=== PATIENT | female | born 1975 | race Caucasian/White ===

== ENCOUNTER → 2017-02-04 | Outpatient (CLI) | payer BC | END | disposition home or self-care (01) | LOC: LABWHC1 09:40 | PROVIDERS: ATTEND Physician Assistant | DX: E50.9 Vitamin A deficiency, unspecified (principal) | CPT/HCPCS: 36415; 84590 ==

== ENCOUNTER 2018-03-18 00:40 | Emergency (ER) | payer BC ==
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
[2018-03-18 01:33] LABS: Amphetamine Screen,Urine Not Detected (NotDetected); Barbiturate Screen,Urine Not Detected (NotDetected); Benzodiazepines Screen,Urine Not Detected (NotDetected); Cocaine Screen,Urine Not Detected (NotDetected); Methadone Screen, Urine Not Detected (NotDetected); Opiate Screen,Urine Not Detected (NotDetected); Oxycodone Screen, Urine Not Detected (NotDetected); Phencyclidine Screen,Urine Not Detected (NotDetected); Tricyclic Antidepressant,Urine Not Detected (NotDetected); Urn Cannabinoid Scrn Not Detected (NotDetected)
[2018-03-18 10:02] VITALS: BP 126/77; PULSE 70; RESP 16; TEMP 97.5
== END 2018-03-18 10:02 | disposition home or self-care (01) ==
LOC: EC 00:40
DX: F31.9 Bipolar disorder, unspecified (principal); F10.129 Alcohol abuse with intoxication, unspecified; J45.909 Unspecified asthma, uncomplicated; Z87.891 Personal history of nicotine dependence; Z79.899 Other long term (current) drug therapy; Z88.6 Allergy status to analgesic agent
CPT/HCPCS: 80306; 82075; 99284

== ENCOUNTER 2021-11-16 21:11 | Observation (INO) | payer BC ==
--- NOTE | 2021-11-16 22:04 | ED ---
Chest Pain HPI - General Chief Complaint: Chest Pain Stated Complaint: Chest Pain Time Seen by Provider: 11/16/21 21:30 Source: patient, RN notes reviewed, old records reviewed Mode of arrival: wheelchair Limitations: no limitations - History of Present Illness Initial Comments: This is a 46-year-old female presents today for evaluation of abdominal pain. Patient has epigastric burning sharp pain. Feels it prior episodes of reflux but worse. Symptoms for about a day no help at times. Patient has no fevers no vomiting. Symptoms are improved if she leans forward worse when she lays down flat. Patient does have history of bariatric surgery. A she currently describes the pain worse chest pain going on for the last 8 hours. MD Complaint: chest pain, other (Epigastric abdominal pain) -: hour(s) (8) Onset: during rest Pain Location: substernal Pain Radiation: none Severity: moderate Severity scale (1-10): 7 Quality: sharp, other (Burning) Consistency: constant Improves With: nothing Worsens With: nothing Context: recent surgery (Surgeries are not recent) Anginal Symptoms: nausea Other Symptoms: acid taste in mouth Treatments Prior to Arrival: none - Related Data Home Medications Medication Instructions Recorded Confirmed FLUoxetine HCL [PROzac] 60 mg PO DAILY 03/18/18 11/16/21 Cholecalciferol (Vitamin D3) 125 mcg PO DAILY 11/16/21 11/16/21 [Vitamin D3 (125 MCG = 5,000 IU)] Montelukast Sodium [Singulair] 10 mg PO HS 11/16/21 11/16/21 [place]-3 Fatty Acids/Fish Oil [Fish 1 cap PO DAILY 11/16/21 11/16/21 Oil 1,000 mg Softgel] lisinopriL [Zestril] 5 mg PO DAILY 11/16/21 11/16/21 metFORMIN HCL [Glucophage] 1,000 mg PO BID 11/16/21 11/16/21 Allergies Allergy/AdvReac Type Severity Reaction Status Date / Time tramadol HCl [From Ultra] Allergy Unknown Verified 11/16/21 22:22 Review of Systems ROS Statement: Those systems with pertinent positive or pertinent negative responses have been documented in the HPI. ROS Other: All systems not noted in ROS Statement are negative. EKG Findings - EKG Comments: EKG Findings:: EKG shows sinus rhythm 61 FL 217 QRS 97 QTC 436 Past Medical History Past Medical History: Asthma Additional Past Medical History / Comment(s): migraines History of Any Multi-Drug Resistant Organisms: None Reported Past Surgical History: Appendectomy, Bariatric Surgery, Section, Orthopedic Surgery Additional Past Surgical History / Comment(s): splenectomy Past Psychological History: Bipolar, Depression Smoking Status: Current every day smoker Past Alcohol Use History: Occasional Past Drug Use History: Marijuana General Exam Limitations: no limitations General appearance: alert, in no apparent distress Head exam: Present: atraumatic, normocephalic, normal inspection Eye exam: Present: normal appearance, PERRL, EOMI. Absent: scleral icterus, conjunctival injection, periorbital swelling ENT exam: Present: normal exam, mucous membranes moist Neck exam: Present: normal inspection. Absent: tenderness, meningismus, lymphadenopathy Respiratory exam: Present: normal lung sounds bilaterally. Absent: respiratory distress, wheezes, rales, rhonchi, stridor Cardiovascular Exam: Present: regular rate, normal rhythm, normal heart sounds. Absent: systolic murmur, diastolic murmur, rubs, gallop, clicks GI/Abdominal exam: Present: soft, tenderness (Epigastric), normal bowel sounds. Absent: distended, guarding, rebound, rigid Extremities exam: Present: normal inspection, full ROM, normal capillary refill. Absent: tenderness, pedal edema, joint swelling, calf tenderness Back exam: Present: normal inspection Neurological exam: Present: alert, oriented X3, CN II-XII intact Psychiatric exam: Present: normal affect, normal mood Skin exam: Present: warm, dry, intact, normal color. Absent: rash Course Vital Signs 11/16/21 21:18 Temperature 97.0 F L Pulse Rate 77 Respiratory 20 Rate Blood Pressure 136/86 O2 Sat by Pulse 98 Oximetry - Reevaluation(s) Reevaluation #1: 11/16/21 23:15 Medical record is reviewed Reevaluation #2: 11/16/21 23:15 Patient's pain is improved Reevaluation #3: 11/16/21 23:46 Patient informed results and questions are answered Reevaluation #4: 11/16/21 23:46 Patient requiring multiple doses of pain medication - Consultations Consultation #1: spoke w Dr Keller who agrees to admit the patient for surgical evaluation Chest Pain MDM - MDM 46 female to the emergency department for evaluation patient presents today for evaluation of abdominal pain. Epigastric abdominal pain right upper quadrant burning. Patient does have positive colicystitis lament for surgical evaluation and treatment Disposition Clinical Impression: Abdominal pain, Acute cholecystitis Disposition: ADMITTED IP TO THIS HOSP Condition: Good Is patient prescribed a controlled substance at d/c from ED?: No Referrals: Maxx Thacker MD [Primary Care Provider] - 1-2 days
[2021-11-16] MEDS ORDERED: PANTOPRAZOLE 40 MG/10 ML VIAL IVP STA (22:14)
[2021-11-16] MEDS ORDERED: MORPHINE SULFATE 4 MG/ML SYRINGE IVP STA (22:14)
[2021-11-16] MEDS ORDERED: ONDANSETRON 4 MG/2 ML VIAL IVP STA (22:14)
[2021-11-16 22:33] LABS: Basophils # (A) 0.1 k/uL (0-0.2); Basophils % (A) 0 %; Eosinophils # (A) 0.2 k/uL (0-0.7); Eosinophils % (A) 1 %; HCT 44.2 % (34.0-46.0); HGB 14.1 gm/dL (11.4-16.0); Lymphocytes # (A) 1.5 k/uL (1.0-4.8); Lymphocytes % (A) 8 %; MCH 27.6 pg (25.0-35.0); MCV 86.2 fL (80.0-100.0); Mean Platelet Volume 7.6; Monocytes # (A) 0.9 k/uL (0-1.0); Monocytes % (A) 5 %; Neutrophils # (A) 14.8 k/uL (1.3-7.7); Neutrophils % (A) 85 %; Platelet Count 364 k/uL (150-450); RBC 5.13 m/uL (3.80-5.40); RDW 12.8 % (11.5-15.5); WBC 17.6 k/uL (3.8-10.6)
[2021-11-16 22:35] LABS: Appearance,Urine Clear (Clear); Bilirubin,Urine Negative (Negative); Blood,Urine Negative (Negative); Color,Urine Yellow; Glucose,Urine (UA) Negative (Negative); Ketones,Urine Negative (Negative); Leukocyte Esterase,Urine Negative (Negative); Nitrite,Urine Negative (Negative); Protein,Urine Trace (Negative); Specific Gravity,Urine 1.027 (1.001-1.035)
--- NOTE | 2021-11-16 22:39 | XR ---
EXAMINATION TYPE: XR chest 2V DATE OF EXAM: 11/16/2021 COMPARISON: 04/21/2015 HISTORY: Short of breath. Chest pain TECHNIQUE: FINDINGS: Heart and mediastinum are normal. Lungs are clear. Diaphragm is normal. There is small hiatal hernia. Bony thorax is intact. IMPRESSION: No active cardiopulmonary disease.
[2021-11-16 22:42] LABS: ALT 72 U/L (4-34); AST 187 U/L (14-36); African American GFR (CKD) >90 (>60 ml/min/1.73 sqM); Albumin 4.6 g/dL (3.5-5.0); Alkaline Phosphatase 89 U/L (38-126); Anion Gap 13 mmol/L; Blood Urea Nitrogen 14 mg/dL (7-17); Calcium 9.4 mg/dL (8.4-10.2); Carbon Dioxide 19 mmol/L (22-30); Chloride 104 mmol/L (98-107); Glucose 156 mg/dL (74-99); Lipase 284 U/L (23-300); Magnesium 1.6 mg/dL (1.6-2.3); Non-African American GFR(CKD) >90 (>60 ml/min/1.73 sqM); Potassium 3.8 mmol/L (3.5-5.1); Sodium 136 mmol/L (137-145); Total Bilirubin 1.4 mg/dL (0.2-1.3); Total Protein 7.8 g/dL (6.3-8.2)
[2021-11-16 22:46] LABS: Prothrombin Time 10.6 sec (9.0-12.0)
[2021-11-16] MEDS ORDERED: MAG HYDROX/AL HYDROX/SIMETH 30 ML, HYOSCYAMINE ELIXIR 10 ML PO STA ×2 (22:47)
--- NOTE | 2021-11-16 23:22 | US ---
EXAMINATION TYPE: US gallbladder DATE OF EXAM: 11/16/2021 COMPARISON: NONE CLINICAL HISTORY: pain. RUQ pain for 10 hours; patient states having gastric bypass surgery 4 years a go. EXAM MEASUREMENTS: Liver Length: 19.0 cm Gallbladder Wall: 0.24 cm CBD: 0.55 cm Right Kidney: 10.9 x 5.7 x 4.3 cm Pancreas: Obscured by bowel gas Liver: Increased attenuation, hepatomegaly Gallbladder: Echogenic material seen with posterior shadowing; gallbladder measures 12.0 cm in lengt h Evidence for sonographic Aviles's sign: No CBD: wnl Right Kidney: No hydronephrosis or masses seen IMPRESSION: There are multiple gallstones. No dilated ducts. There is large gallbladder suspicious for cholecysti tis.
[2021-11-16 23:25] LABS: Partial Thromboplastin Time 21.3 sec (22.0-30.0)
[2021-11-16] MEDS ORDERED: ONDANSETRON 4 MG/2 ML VIAL IVP PRN (23:44)
[2021-11-16] MEDS ORDERED: AMPICILLIN-SULBACTAM 3 GM in SODIUM CHLORIDE 0.9% 100 ML IVPB STA (23:44)
[2021-11-16] MEDS ORDERED: NALOXONE 0.4 MG/ML 1 ML VIAL IV PRN (23:44)
[2021-11-16] MEDS ORDERED: LORazepam 2 MG/ML INJ IV PRN (23:44)
[2021-11-16] MEDS ORDERED: HYDROmorphone 1 MG/ML 1 ML SYRINGE IVP STA (23:45)
[2021-11-17] MEDS: SODIUM CHLORIDE 0.9% 1,000 ML IV SCH ×5 (00:33→23:58)
[2021-11-17] MEDS: HYDROmorphone 1 MG/ML 1 ML SYRINGE IVP PRN ×4 (03:29→20:25)
[2021-11-17 07:45] LABS: Basophils % (A) 0 %; Eosinophils # (A) 0.1 k/uL (0-0.7); Eosinophils % (A) 0 %; HCT 42.4 % (34.0-46.0); HGB 13.3 gm/dL (11.4-16.0); Lymphocytes # (A) 0.8 k/uL (1.0-4.8); Lymphocytes % (A) 7 %; MCH 27.3 pg (25.0-35.0); MCHC 31.3 g/dL (31.0-37.0); MCV 87.2 fL (80.0-100.0); Mean Platelet Volume 7.8; Monocytes # (A) 0.5 k/uL (0-1.0); Monocytes % (A) 4 %; Neutrophils # (A) 10.5 k/uL (1.3-7.7); Neutrophils % (A) 88 %; Platelet Count 320 k/uL (150-450); RBC 4.86 m/uL (3.80-5.40); RDW 12.9 % (11.5-15.5)
[2021-11-17 07:57] LABS: ALT 343 U/L (4-34); AST 696 U/L (14-36); African American GFR (CKD) >90 (>60 ml/min/1.73 sqM); Alkaline Phosphatase 88 U/L (38-126); Anion Gap 6 mmol/L; Blood Urea Nitrogen 10 mg/dL (7-17); Calcium 9.1 mg/dL (8.4-10.2); Carbon Dioxide 24 mmol/L (22-30); Chloride 107 mmol/L (98-107); Glucose 139 mg/dL (74-99); Magnesium 1.9 mg/dL (1.6-2.3); Non-African American GFR(CKD) >90 (>60 ml/min/1.73 sqM); Phosphorus 3.7 mg/dL (2.5-4.5); Potassium 4.3 mmol/L (3.5-5.1); Sodium 137 mmol/L (137-145); Total Bilirubin 2.7 mg/dL (0.2-1.3); Total Protein 6.9 g/dL (6.3-8.2)
[2021-11-17 11:11] LABS: ALT 437 U/L (4-34); African American GFR (CKD) >90 (>60 ml/min/1.73 sqM); Albumin 3.5 g/dL (3.5-5.0); Albumin/Globulin Ratio 1.2; Alkaline Phosphatase 92 U/L (38-126); Anion Gap 5 mmol/L; Blood Urea Nitrogen 9 mg/dL (7-17); Calcium 8.9 mg/dL (8.4-10.2); Carbon Dioxide 26 mmol/L (22-30); Chloride 107 mmol/L (98-107); Globulin 2.9 g/dL; Glucose 129 mg/dL (74-99); Non-African American GFR(CKD) >90 (>60 ml/min/1.73 sqM); Potassium 4.1 mmol/L (3.5-5.1); Sodium 138 mmol/L (137-145); Total Bilirubin 3.2 mg/dL (0.2-1.3); Total Protein 6.4 g/dL (6.3-8.2)
[2021-11-17] MEDS: AMPICILLIN-SULBACTAM 3 GM in SODIUM CHLORIDE 0.9% 100 ML IVPB SCH ×3 (11:11→23:58)
[2021-11-17] MEDS: PANTOPRAZOLE 40 MG/10 ML VIAL IV SCH (11:11)
[2021-11-17 11:20] LABS: AST 792 U/L (14-36)
--- NOTE | 2021-11-17 14:08 | P.GSHP ---
History of Present Illness H&P Date: 11/17/21 CHIEF COMPLAINT: Abdominal pain HISTORY OF PRESENT ILLNESS: This is a 46-year-old female who presented with right upper quadrant and epigastric pain that started 2 days ago. Patient also had an episode of pain in the abdomen last week and this past Tuesday. Patient reports last night she was eating buttery popcorn and a little while later she started having severe sharp stabbing epigastric and right upper quadrant abdominal pain. She was also having severe heartburn. She reports the pain 10 out of 10. Initially she thought she was having a heart attack. She came into the ER for further evaluation. She was found to have elevated liver enzymes and bilirubin which are trending upwards. Ultrasound of the gallbladder had shown multiple gallstones and a enlarged gallbladder suspicious for cholecystitis. 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 Patient denies any fever chills or sweats. Denies any nausea or vomiting. Patient does report that her pain has improved today. PAST MEDICAL HISTORY: Diabetic, hypertension, Asthma, bipolar and depression PAST SURGICAL HISTORY: Appendectomy, Bariatric Surgery, Section, Orthopedic Surgery MEDICATIONS: See list. ALLERGIES: See list. SOCIAL HISTORY: No illicit drug use. Smoker REVIEW OF SYSTEMS: CONSTITUTIONAL: Denies fever or chills. HEENT: Denies blurred vision, vision changes, or eye pain. Denies hemoptysis CARDIOVASCULAR: Denies chest pain or pressure. RESPIRATORY: No shortness of breath. GASTROINTESTINAL: See HPI for pertinent findings HEMATOLOGIC: Denies bleeding disorders. GENITOURINARY: Denies any blood in urine or increased urinary frequency. SKIN: Denies pruitis. Denies rash. PHYSICAL EXAM: VITAL SIGNS: Reviewed GENERAL: Well-developed in no acute distress. HEENT: No sclera icterus. Extraocular movements grossly intact. Moist buccal mucosa. Head is atraumatic, normocephalic. No nasal drainage. ABDOMEN: Soft. Nondistended. Mild tenderness with palpation right upper quadrant NEUROLOGIC: Alert and oriented. Cranial nerves II through XII grossly intact. LABORATORY DATA: WBC 17.6 down to 12 hemoglobin 13.3 platelets 320 D-dimer 0.46 Sodium 138 potassium 4.1 creatinine 0.70 glucose 129 Magnesium 1.9 Total bilirubin 1.4 up to 3.2 AST 187 up to 696 then up to 792 ALT 72 up to 343 then up to 437 Alk phos 92 Lipase 284 Troponin negative Urinalysis no evidence of infection Urine hCG not detected Covid 19 not detected IMAGING: Ultrasound shows multiple gallstones. No dilated ducts. There is a large gallbladder suspicious for cholecystitis ASSESSMENT: 1. Right upper quadrant and epigastric abdominal pain 2. Acute cholecystitis 3. Choledocholithiasis PLAN: -Patient's LFTs and bilirubin are worsening. No surgery planned for today. -Repeat LFTs in a.m. -MRCP ordered for further evaluation of choledocholithiasis -Start clear liquid diet -Continue IV antibiotics -Continue IV fluids -Continue pain medication as needed -Consult medicine service for medical management -GI prophylaxis Protonix and DVT prophylaxis subcu heparin Physician Bus Operator note has been reviewed by physician. Signing provider agrees with the documented findings, assessment, and plan of care. Past Medical History Past Medical History: Asthma, Diabetes Mellitus, Hypertension Additional Past Medical History / Comment(s): migraines History of Any Multi-Drug Resistant Organisms: None Reported Past Surgical History: Appendectomy, Bariatric Surgery, Section, Orth opedic Surgery, Tonsillectomy Additional Past Surgical History / Comment(s): splenectomy, ACL L leg Past Anesthesia/Blood Transfusion Reactions: No Reported Reaction Past Psychological History: Bipolar, Depression Smoking Status: Current every day smoker Past Alcohol Use History: Occasional Additional Past Alcohol Use History / Comment(s): patient smokes less than one pack per day Medications and Allergies Home Medications Medication Instructions Recorded Confirmed Type FLUoxetine HCL [PROzac] 60 mg PO DAILY 03/18/18 11/16/21 History Cholecalciferol (Vitamin D3) 125 mcg PO DAILY 11/16/21 11/16/21 History [Vitamin D3 (125 MCG = 5,000 IU)] Montelukast Sodium [Singulair] 10 mg PO HS 11/16/21 11/16/21 History [place]-3 Fatty Acids/Fish Oil [Fish 1 cap PO DAILY 11/16/21 11/16/21 History Oil 1,000 mg Softgel] lisinopriL [Zestril] 5 mg PO DAILY 11/16/21 11/16/21 History metFORMIN HCL [Glucophage] 1,000 mg PO BID 11/16/21 11/16/21 History Allergies Allergy/AdvReac Type Severity Reaction Status Date / Time tramadol HCl [From [facility]] Allergy Unknown Verified 11/16/21 22:22 Surgical - Exam Vital Signs Temp Pulse Resp BP Pulse Ox 97.0 F L 77 20 136/86 98 11/16/21 21:18 11/16/21 21:18 11/16/21 21:18 11/16/21 21:18 11/16/21 21:18 Results - Labs 11/17/21 07:04 11/17/21 10:40 Abnormal Lab Results - Last 24 Hours (Table) 11/16/21 11/16/21 11/16/21 Range/Units 22:14 22:14 22:14 WBC 17.6 H (3.8-10.6) k/uL Neutrophils # 14.8 H (1.3-7.7) k/uL Lymphocytes # (1.0-4.8) k/uL APTT 21.3 L (22.0-30.0) sec Sodium 136 L (137-145) mmol/L Carbon Dioxide 19 L (22-30) mmol/L Glucose 156 H (74-99) mg/dL Total Bilirubin 1.4 H (0.2-1.3) mg/dL AST 187 H (14-36) U/L ALT 72 H (4-34) U/L Urine Protein (Negative) 11/16/21 11/17/21 11/17/21 Range/Units 22:26 07:04 07:04 WBC 12.0 H (3.8-10.6) k/uL Neutrophils # 10.5 H (1.3-7.7) k/uL Lymphocytes # 0.8 L (1.0-4.8) k/uL APTT (22.0-30.0) sec Sodium (137-145) mmol/L Carbon Dioxide (22-30) mmol/L Glucose 139 H (74-99) mg/dL Total Bilirubin 2.7 H (0.2-1.3) mg/dL AST 696 H (14-36) U/L ALT 343 H (4-34) U/L Urine Protein Trace H (Negative) Diabetes panel 11/16/21 11/17/21 Range/Units 22:14 07:04 Sodium 136 L 137 (137-145) mmol/L Potassium 3.8 4.3 (3.5-5.1) mmol/L Chloride 104 107 (98-107) mmol/L Carbon Dioxide 19 L 24 (22-30) mmol/L BUN 14 10 (7-17) mg/dL Creatinine 0.64 0.65 (0.52-1.04) mg/dL Glucose 156 H 139 H (74-99) mg/dL Calcium 9.4 9.1 (8.4-10.2) mg/dL AST 187 H 696 H (14-36) U/L ALT 72 H 343 H (4-34) U/L Alkaline Phosphatase 89 88 (38-126) U/L Total Protein 7.8 6.9 (6.3-8.2) g/dL Albumin 4.6 4.0 (3.5-5.0) g/dL Calcium panel 11/16/21 11/17/21 Range/Units 22:14 07:04 Calcium 9.4 9.1 (8.4-10.2) mg/dL Phosphorus 3.7 (2.5-4.5) mg/dL Albumin 4.6 4.0 (3.5-5.0) g/dL Pituitary panel 11/16/21 11/17/21 Range/Units 22:14 07:04 Sodium 136 L 137 (137-145) mmol/L Potassium 3.8 4.3 (3.5-5.1) mmol/L Chloride 104 107 (98-107) mmol/L Carbon Dioxide 19 L 24 (22-30) mmol/L BUN 14 10 (7-17) mg/dL Creatinine 0.64 0.65 (0.52-1.04) mg/dL Glucose 156 H 139 H (74-99) mg/dL Calcium 9.4 9.1 (8.4-10.2) mg/dL Adrenal panel 11/16/21 11/17/21 Range/Units 22:14 07:04 Sodium 136 L 137 (137-145) mmol/L Potassium 3.8 4.3 (3.5-5.1) mmol/L Chloride 104 107 (98-107) mmol/L Carbon Dioxide 19 L 24 (22-30) mmol/L BUN 14 10 (7-17) mg/dL Creatinine 0.64 0.65 (0.52-1.04) mg/dL Glucose 156 H 139 H (74-99) mg/dL Calcium 9.4 9.1 (8.4-10.2) mg/dL Total Bilirubin 1.4 H 2.7 H (0.2-1.3) mg/dL AST 187 H 696 H (14-36) U/L ALT 72 H 343 H (4-34) U/L Alkaline Phosphatase 89 88 (38-126) U/L Total Protein 7.8 6.9 (6.3-8.2) g/dL Albumin 4.6 4.0 (3.5-5.0) g/dL
--- NOTE | 2021-11-17 16:08 | P.CONS ---
History of Present Illness - Reason for Consult Consult date: 11/17/21 Medical management - Chief Complaint Abdominal pain, medical management - History of Present Illness 46-year-old woman with medical history of asthma, bipolar disorder, hypertension, hyperlipidemia, diabetes, ALLERGIC rhinitis presented for abdominal pain. Medicine consulted for medical management. Patient has had issues with pain for approximately 1 week. She says it feels sharp in nature as if she was being "cut open with a knife and having alcohol poured over her belly". Symptoms are worse shortly after meals. She denies any fevers, chills, nausea, vomiting, constipation, diarrhea, hematemesis, hematochezia, melena, dysuria, chest pain, palpitations, syncope, presyncopal or, cough, dyspnea, numbness/weakness of extremities. Patient is compliant with her medications at home. Past medical history: Asthma, bipolar disorder, hypertension, hyperlipidemia, diabetes, ALLERGIC rhinitis Past surgical history, ACL repair, tonsillectomy Medications: Metformin, lisinopril, montelukast, fluoxetine, vitamin D, omega- 3/Fish oil Social history: Current smoker, occasional alcohol, denies recreational drugs Family history: Noncontributory ALLERGIES: Tramadol All Systems reviewed and pertinent positives and negatives noted in HPI, all other symptoms are negative Patient is afebrile, 107/68, heart rate 86, 96% room air. Gen: awake, alert HEENT: normocephalic, atraumatic, good hearing acuity, moist mucous membranes Resp: good air exchange, breathing comfortably with no accessory muscle use CVS: good distal perfusion x 4, GI: Nondistended, tenderness to palpation the right upper quadrant and epigastrium : no SPT, no CVAT, butler catheter is present MSK: no pitting edema, no clubbing Neuro: non-focal, moving all extremities Psych: cooperative, euthymic mood CBC has mild leukocytosis, chemistries are remarkable for bilirubin of 3.2, AST/ALT of 792/437. Urinalysis has trace protein, otherwise unremarkable. Covid was negative. Chest x-ray has a small hiatal hernia, otherwise appears normal. EKG shows sinus rhythm with first-degree AV block, no ischemic changes. Gallbladder ultrasound had multiple gallstones with a large gallbladder suspicious for cholecystitis, no CBD dilation, no hydronephrosis. Assessment/plan: Acute cholecystitis Choledocholithiasis -Management per primary team -MRCP pending -GI consult pending Diabetes type 2 Hypertension Hyperlipidemia ALLERGIC rhinitis Mild persistent asthma Bipolar disorder -Home medications reviewed and reconciled -DuoNeb's when necessary -Low-dose sliding scale insulin Thank you for this consult, [facility] is available 18/04 should you have any questions or concerns regarding this patient please reach out via perfect serve. Past Medical History Past Medical History: Asthma, Diabetes Mellitus, Hypertension Additional Past Medical History / Comment(s): migraines History of Any Multi-Drug Resistant Organisms: None Reported Past Surgical History: Appendectomy, Bariatric Surgery, Section, Orthopedic Surgery, Tonsillectomy Additional Past Surgical History / Comment(s): splenectomy, ACL L leg Past Anesthesia/Blood Transfusion Reactions: No Reported Reaction Past Psychological History: Bipolar, Depression Smoking Status: Current every day smoker Past Alcohol Use History: Occasional Additional Past Alcohol Use History / Comment(s): patient smokes less than one pack per day Medications and Allergies Home Medications Medication Instructions Recorded Confirmed Type FLUoxetine HCL [PROzac] 60 mg PO DAILY 03/18/18 11/16/21 History Cholecalciferol (Vitamin D3) 125 mcg PO DAILY 11/16/21 11/16/21 History [Vitamin D3 (125 MCG = 5,000 IU)] Montelukast Sodium [Singulair] 10 mg PO HS 11/16/21 11/16/21 History [place]-3 Fatty Acids/Fish Oil [Fish 1 cap PO DAILY 11/16/21 11/16/21 History Oil 1,000 mg Softgel] lisinopriL [Zestril] 5 mg PO DAILY 11/16/21 11/16/21 History metFORMIN HCL [Glucophage] 1,000 mg PO BID 11/16/21 11/16/21 History Allergies Allergy/AdvReac Type Severity Reaction Status Date / Time tramadol HCl [From Ultram] Allergy Unknown Verified 11/16/21 22:22 Physical Exam Osteopathic Statement: *. No significant issues noted on an osteopathic structural exam other than those noted in the History and Physical/Consult. Vitals: Vital Signs Temp Pulse Pulse Resp BP BP Pulse Ox 11/17/21 11:50 98.1 F 86 14 107/68 96 11/17/21 08:00 64 11/17/21 07:40 97.8 F 64 18 109/68 99 11/17/21 04:54 97.6 F 70 18 127/77 97 11/16/21 21:18 97.0 F L 77 20 136/86 98 Intake and Output 11/17/21 11/17/21 11/17/21 06:59 14:59 22:59 Other: Voiding Method Toilet # Voids 1 Weight 88.904 kg Results CBC & Chem 7: 11/17/21 07:04 11/17/21 10:40 Labs: Abnormal Lab Results - Last 24 Hours (Table) 11/16/21 11/16/21 11/16/21 Range/Units 22:14 22:14 22:14 WBC 17.6 H (3.8-10.6) k/uL Neutrophils # 14.8 H (1.3-7.7) k/uL Lymphocytes # (1.0-4.8) k/uL APTT 21.3 L (22.0-30.0) sec Sodium 136 L (137-145) mmol/L Carbon Dioxide 19 L (22-30) mmol/L Glucose 156 H (74-99) mg/dL Total Bilirubin 1.4 H (0.2-1.3) mg/dL AST 187 H (14-36) U/L ALT 72 H (4-34) U/L Urine Protein (Negative) 11/16/21 11/17/21 11/17/21 Range/Units 22:26 07:04 07:04 WBC 12.0 H (3.8-10.6) k/uL Neutrophils # 10.5 H (1.3-7.7) k/uL Lymphocytes # 0.8 L (1.0-4.8) k/uL APTT (22.0-30.0) sec Sodium (137-145) mmol/L Carbon Dioxide (22-30) mmol/L Glucose 139 H (74-99) mg/dL Total Bilirubin 2.7 H (0.2-1.3) mg/dL AST 696 H (14-36) U/L ALT 343 H (4-34) U/L Urine Protein Trace H (Negative) 11/17/21 Range/Units 10:40 WBC (3.8-10.6) k/uL Neutrophils # (1.3-7.7) k/uL Lymphocytes # (1.0-4.8) k/uL APTT (22.0-30.0) sec Sodium (137-145) mmol/L Carbon Dioxide (22-30) mmol/L Glucose 129 H (74-99) mg/dL Total Bilirubin 3.2 H (0.2-1.3) mg/dL AST 792 H (14-36) U/L ALT 437 H (4-34) U/L Urine Protein (Negative)
[2021-11-17 17:22] LABS: Glucose,Whole Blood 112 mg/dL (75-99)
[2021-11-17] MEDS: INSULIN ASPART (NovoLOG) 100 UNIT/ML VIAL SQ SCH (17:27)
[2021-11-17] MEDS: MONTELUKAST 10 MG TAB PO SCH (20:25)
[2021-11-17] MEDS: HEPARIN SODIUM,PORCINE/PF 5,000 UNIT/0.5 ML SYRINGE SQ SCH (20:25)
[2021-11-17 21:09] LABS: Glucose,Whole Blood 84 mg/dL (75-99)
[2021-11-18 07:39] LABS: Glucose,Whole Blood 100 mg/dL (75-99)
[2021-11-18] MEDS: INSULIN ASPART (NovoLOG) 100 UNIT/ML VIAL SQ SCH ×3 (08:03→17:48)
[2021-11-18] MEDS: PANTOPRAZOLE 40 MG/10 ML VIAL IV SCH (08:10)
[2021-11-18] MEDS: SODIUM CHLORIDE 0.9% 1,000 ML IV SCH ×2 (08:11→19:51)
[2021-11-18] MEDS: AMPICILLIN-SULBACTAM 3 GM in SODIUM CHLORIDE 0.9% 100 ML IVPB SCH ×2 (08:11→16:22)
[2021-11-18 08:13] LABS: Basophils % (A) 0 %; Eosinophils # (A) 0.2 k/uL (0-0.7); Eosinophils % (A) 4 %; HGB 12.5 gm/dL (11.4-16.0); Hypochromasia Slight; Lymphocytes # (A) 1.4 k/uL (1.0-4.8); Lymphocytes % (A) 28 %; MCH 28.4 pg (25.0-35.0); MCV 88.7 fL (80.0-100.0); Monocytes # (A) 0.3 k/uL (0-1.0); Monocytes % (A) 6 %; Neutrophils # (A) 3.1 k/uL (1.3-7.7); Neutrophils % (A) 61 %; Platelet Count 270 k/uL (150-450); RDW 13.1 % (11.5-15.5)
[2021-11-18 08:33] LABS: ALT 440 U/L (4-34); AST 335 U/L (14-36); African American GFR (CKD) >90 (>60 ml/min/1.73 sqM); Albumin 3.3 g/dL (3.5-5.0); Albumin/Globulin Ratio 1.2; Alkaline Phosphatase 106 U/L (38-126); Anion Gap 2 mmol/L; Blood Urea Nitrogen 5 mg/dL (7-17); Calcium 8.5 mg/dL (8.4-10.2); Carbon Dioxide 27 mmol/L (22-30); Chloride 110 mmol/L (98-107); Globulin 2.7 g/dL; Glucose 117 mg/dL (74-99); Non-African American GFR(CKD) >90 (>60 ml/min/1.73 sqM); Potassium 3.8 mmol/L (3.5-5.1); Sodium 139 mmol/L (137-145); Total Bilirubin 1.1 mg/dL (0.2-1.3)
[2021-11-18] MEDS: lisinopriL 5 MG TAB PO SCH (11:59)
[2021-11-18] MEDS: FLUoxetine HCL 20 MG CAP PO SCH (11:59)
[2021-11-18] MEDS: CHOLECALCIFEROL 125 MCG (5000 IU) TABLET PO SCH (11:59)
[2021-11-18] MEDS: NON FORMULARY DRUG (Omega-3 Fatty Acids/Fish Oil [Fish Oil 1,000 Mg Softgel] 1 EACH Capsul PO SCH (12:00)
[2021-11-18] MEDS: HEPARIN SODIUM,PORCINE/PF 5,000 UNIT/0.5 ML SYRINGE SQ SCH ×2 (12:00→19:51)
[2021-11-18 12:20] LABS: Glucose,Whole Blood 99 mg/dL (75-99)
--- NOTE | 2021-11-18 14:38 | P.CONS ---
History of Present Illness - Reason for Consult Consult date: 11/18/21 Elevated LFTs, possible choledocholithiasis Requesting physician: Heide Warner - Chief Complaint Epigastric abdominal pain - History of Present Illness This is a 46-year-old female who presented to the emergency department on Tuesday with complaints of severe epigastric pain. Patient states pain started week ago Tuesday and she thought it was just heartburn, however progressively had been getting worse. Over the weekend she went to see a movie and was eating popcorn after eating popcorn it became pretty severe she had denied any associated nausea vomiting. She's had no fevers. She came in for further evaluation on Tuesday as she states the pain was so bad she was not able to lay down. Admission she had noted elevated LFTs with a total bilirubin 1.4 AST 187 ALT 72 alkaline phosphatase 89. She underwent gallbladder ultrasound showing multiple gallstones but no dilated ducts. Gallbladder suspicious for cholecystitis. Patient was scheduled for tentative cholecystectomy yesterday however she had a spike in her LFTs with total bilirubin going as high as 3.2. Today she seen and evaluated pain has improved significantly. She has been afebrile. Scheduled to undergo MRCP which is currently pending. LFTs have improved total bilirubin 1.1 AST 335 ALT 440 alkaline phosphatase 106. Review of Systems REVIEW OF SYSTEMS: CARDIOPULMONARY: No chest pain or shortness of breath. Gastrointestinal: Burning sensation in epigastric region, radiating to the right upper quadrant and in her back. Pain has significantly improved since admission. No nausea or vomiting. No hematemesis, coffee-ground emesis. No rectal bleeding, or melena. GENITOURINARY: No dysuria or hematuria. MUSCULOSKELETAL: Reports normal range of motion., Joint pain. SKIN: No rashes. No jaundice. ENDOCRINE: No chills, fevers. No excessive weight gain or loss. No polydipsia or polyuria. PSYCHIATRIC: Unremarkable. NEUROLOGY: No change in mental status. Denies dizziness, headache. ENT: Vision unremarkable. CONSTITUTIONAL: No recent weight loss. No fever, chills, night sweats. Past Medical History Past Medical History: Asthma, Diabetes Mellitus, Hypertension Additional Past Medical History / Comment(s): migraines History of Any Multi-Drug Resistant Organisms: None Reported Past Surgical History: Appendectomy, Bariatric Surgery, Section, Orthopedic Surgery, Tonsillectomy Additional Past Surgical History / Comment(s): splenectomy, ACL L leg Past Anesthesia/Blood Transfusion Reactions: No Reported Reaction Past Psychological History: Bipolar, Depression Smoking Status: Current every day smoker Past Alcohol Use History: Occasional Additional Past Alcohol Use History / Comment(s): patient smokes less than one pack per day Medications and Allergies Home Medications Medication Instructions Recorded Confirmed Type FLUoxetine HCL [PROzac] 60 mg PO DAILY 03/18/18 11/16/21 History Cholecalciferol (Vitamin D3) 125 mcg PO DAILY 11/16/21 11/16/21 History [Vitamin D3 (125 MCG = 5,000 IU)] Montelukast Sodium [Singulair] 10 mg PO HS 11/16/21 11/16/21 History [place]-3 Fatty Acids/Fish Oil [Fish 1 cap PO DAILY 11/16/21 11/16/21 History Oil 1,000 mg Softgel] lisinopriL [Zestril] 5 mg PO DAILY 11/16/21 11/16/21 History metFORMIN HCL [Glucophage] 1,000 mg PO BID 11/16/21 11/16/21 History Allergies Allergy/AdvReac Type Severity Reaction Status Date / Time tramadol HCl [From Ultra] Allergy Unknown Verified 11/16/21 22:22 Physical Exam Vitals: Vital Signs Temp Pulse Resp BP Pulse Ox 11/18/21 05:00 97.7 F 70 18 120/76 98 11/17/21 20:00 98.0 F 69 18 116/71 98 11/17/21 11:50 98.1 F 86 14 107/68 96 Intake and Output 11/17/21 11/18/21 11/18/21 22:59 06:59 14:59 Intake Total 1560 1400 Balance 1560 1400 Intake: Intake, IV Titration 1560 1400 Amount Ampicillin-Sulbactam 3 gm 100 In Sodium Chloride 0.9% 100 ml @ 200 mls/hr IVPB Q8H ANDRE Rx#:[id number] Sodium Chloride 0.9% 1, 1560 1300 000 ml @ 130 mls/hr IV . Q7H42M ANDRE Rx#:[id number] Oral 0 Other: Voiding Method Toilet # Voids 3 2 General appearance: The patient is alert, oriented, appears in no acute distress. HET: Head is normocephalic and atraumatic. Conjunctiva pink. Sclera anicteric. Neck: Supple without lymphadenopathy. Trachea midline. Heart: S1 S2. Regular rate and rhythm. Lungs: Clear to auscultation. Abdomen: Soft, nontender, nondistended with bowel sounds. No guarding or rigid ity. Skin: No rashes. No jaundice. Extremities: Normal skin color and turgor. No pedal edema. Neurological: No focal deficits. Alert and oriented x3. Results CBC & Chem 7: 11/18/21 08:00 11/18/21 08:00 Labs: Abnormal Lab Results - Last 24 Hours (Table) 11/17/21 11/17/21 11/18/21 Range/Units 10:40 17:11 07:38 Chloride (98-107) mmol/L BUN (7-17) mg/dL Glucose 129 H (74-99) mg/dL POC Glucose (mg/dL) 112 H 100 H (75-99) mg/dL Total Bilirubin 3.2 H (0.2-1.3) mg/dL AST 792 H (14-36) U/L ALT 437 H (4-34) U/L Total Protein (6.3-8.2) g/dL Albumin (3.5-5.0) g/dL 11/18/21 Range/Units 08:00 Chloride 110 H (98-107) mmol/L BUN 5 L (7-17) mg/dL Glucose 117 H (74-99) mg/dL POC Glucose (mg/dL) (75-99) mg/dL Total Bilirubin (0.2-1.3) mg/dL AST 335 H (14-36) U/L ALT 440 H (4-34) U/L Total Protein 6.0 L (6.3-8.2) g/dL Albumin 3.3 L (3.5-5.0) g/dL US - abdomen: report reviewed (There are multiple gallstones. No dilated ducts. Large gallbladder suspicious for cholecystitis.) Assessment and Plan (1) Elevated LFTs Narrative/Plan: This is a 46 year old female who presented to the ER for complaints of severe epigastric pain. Pain started one week ago and progressively had gotten worse. She was noted to have elevated LFTs and gallstones on US with no dilated ducts. She was tentatively scheduled for cholecystectomy yesterday however she had elevation in her LFTs so patient was scheduled for an MRCP. MRCP was taken this morning however currently pending results. Patient's symptoms have improved significantly as well as her LFTs. Patient likely passed a CBD stone however she is asymptomatic at this time and LFTs are improved. Will await MRCP results, however ERCP is not likely indicated. Current Visit: Yes Status: Acute Code(s): R79.89 - OTHER SPECIFIED ABNORMAL FINDINGS OF BLOOD CHEMISTRY SNOMED Code(s): 402648719 (2) Acute cholecystitis Current Visit: Yes Status: Acute Code(s): K81.0 - ACUTE CHOLECYSTITIS SNOMED Code(s): 09509196 Plan: 1. Agree with MRCP await results 2. Repeat CMP in the morning 3. Patient may have low-fat diet 4. Continue with recommendations from surgical services 5. Further recommendations forthcoming based on MRCP Thank you for this consultation, we will continue to follow. Dr. Jamil Souza I agree with the dictator's note, documented as a scribe by Fiorella Acotsa.
--- NOTE | 2021-11-18 14:38 | MR ---
MRCP HISTORY: Nausea, vomiting, pain, elevated liver function tests Multiplanar multisequence imaging through the abdomen, three-dimensional reconstructions performed th rough the biliary system on an alternate workstation and reviewed. Correlation ultrasound gallbladder 11/16/2021 The liver is enlarged. No evident mass or dilated intra or extrahepatic biliary duct. Lung bases show no effusion. Hiatal hernia is present. Spleen shows a crescentic area posterior and superiorly which may represent splenule, additional smaller areas of possible splenic tissue are present in the left upper quadrant. There are dependent gallstones within the gallbladder. There is pericholecystic fluid present. No liz dent filling defect to suggest choledocholithiasis. Poor signal noted especially in the reconstructed images of the confluence of the left and right hepatic ducts. This may represent an artifact. There is no retroperitoneal adenopathy. Aorta shows normal caliber. Adrenal glands are symmetric. Kidneys s how no mass. No evident bowel obstruction. IMPRESSION: Cholelithiasis, correlate for cholecystitis. Probable splenosis within the left upper amanda drant. Hiatal hernia. Probable artifact noted at the confluence of the left and right hepatic ducts. There is motion on the exam. Hepatomegaly.
--- NOTE | 2021-11-18 15:28 | P.PN ---
Subjective Progress Note Date: 11/18/21 No new complaints today. Pain has resolved. Scheduled for MRCP today. Objective - Vital Signs Vital signs: Vital Signs Temp 98.3 F 11/18/21 12:12 Pulse 60 11/18/21 12:12 Resp 18 11/18/21 12:12 BP 142/81 11/18/21 12:12 Pulse Ox 98 11/18/21 12:12 Intake & Output 11/17/21 11/18/21 11/18/21 18:59 06:59 18:59 Intake Total 1560 1400 Balance 1560 1400 Intake: Intake, IV Titration 1560 1400 Amount Ampicillin-Sulbactam 3 gm 100 In Sodium Chloride 0.9% 100 ml @ 200 mls/hr IVPB Q8H ANDRE Rx#:[id number] Sodium Chloride 0.9% 1, 1560 1300 000 ml @ 130 mls/hr IV . Q7H42M ANDRE Rx#:[id number] Oral 0 Other: Voiding Method Toilet Toilet Toilet # Voids 3 2 - Exam Gen: awake, alert HEENT: normocephalic, atraumatic, good hearing acuity, moist mucous membranes Resp: good air exchange, breathing comfortably with no accessory muscle use CVS: good distal perfusion x 4, GI: Nondistended, tenderness to palpation the right upper quadrant and epigastrium : no SPT, no CVAT, butler catheter is present MSK: no pitting edema, no clubbing Neuro: non-focal, moving all extremities Psych: cooperative, euthymic mood - Labs CBC & Chem 7: 11/18/21 08:00 11/18/21 08:00 Labs: Abnormal Lab Results - Last 24 Hours (Table) 11/17/21 11/18/21 11/18/21 Range/Units 17:11 07:38 08:00 Chloride 110 H (98-107) mmol/L BUN 5 L (7-17) mg/dL Glucose 117 H (74-99) mg/dL POC Glucose (mg/dL) 112 H 100 H (75-99) mg/dL AST 335 H (14-36) U/L ALT 440 H (4-34) U/L Total Protein 6.0 L (6.3-8.2) g/dL Albumin 3.3 L (3.5-5.0) g/dL Assessment and Plan Assessment: Acute cholecystitis Choledocholithiasis -Management per primary team -MRCP pending -GI consult pending Diabetes type 2 Hypertension Hyperlipidemia ALLERGIC rhinitis Mild persistent asthma Bipolar disorder -Home medications reviewed and reconciled -DuoNeb's when necessary -Low-dose sliding scale insulin Thank you for this consult, [facility] is available 18/04 should you have any questions or concerns regarding this patient please reach out via perfect serve.
--- NOTE | 2021-11-18 15:48 | P.PN ---
Subjective Progress Note Date: 11/18/21 CHIEF COMPLAINT: Abdominal pain HISTORY OF PRESENT ILLNESS: Patient reports that her abdominal pain has i mproved. Her LFTs are trending downwards. Total bilirubin normalized. She had an MRCP completed which demonstrated cholelithiasis, correlate for cholecystitis. A probable splenosis within the left upper quadrant. Hiatal hernia. Probable artifact noted at the confluence of the left and right hepatic ducts. There is motion on exam. Hepatomegaly. Afebrile. White count normalized down from 12 to 5 PHYSICAL EXAM: VITAL SIGNS: Reviewed. GENERAL: Well-developed in no acute distress. HEENT: No sclera icterus. Extraocular movements grossly intact. Moist buccal mucosa. Head is atraumatic, normocephalic. ABDOMEN: Soft. Nondistended. Nontender. NEUROLOGIC: Alert and oriented. Cranial nerves II through XII grossly intact. ASSESSMENT: 1. Acute cholecystitis with cholelithiasis 2. LFTs trending downwards. Patient possibly passed stone. No evidence of choledocholithiasis on MRCP PLAN: -Patient states gradual to for laparoscopic cholecystectomy tomorrow 11/19/[address] lanza -Keep patient nothing by mouth after midnight -Low fat diet for dinner -Continue antibiotics -Continue IV fluids -Continue supportive care Physician Interior Design Assistant note has been reviewed by physician. Signing provider agrees with the documented findings, assessment, and plan of care. Objective - Vital Signs Vital signs: Vital Signs Temp 98.3 F 11/18/21 12:12 Pulse 60 11/18/21 12:12 Resp 18 11/18/21 12:12 BP 142/81 11/18/21 12:12 Pulse Ox 98 11/18/21 12:12 Intake & Output 11/17/21 11/18/21 11/18/21 18:59 06:59 18:59 Intake Total 1560 1400 Balance 1560 1400 Intake: Intake, IV Titration 1560 1400 Amount Ampicillin-Sulbactam 3 gm 100 In Sodium Chloride 0.9% 100 ml @ 200 mls/hr IVPB Q8H ANDRE Rx#:[id number] Sodium Chloride 0.9% 1, 1560 1300 000 ml @ 130 mls/hr IV . Q7H42M ANDRE Rx#:[id number] Oral 0 Other: Voiding Method Toilet Toilet Toilet # Voids 3 2 - Labs CBC & Chem 7: 11/18/21 08:00 11/18/21 08:00 Labs: Abnormal Lab Results - Last 24 Hours (Table) 11/17/21 11/18/21 11/18/21 Range/Units 17:11 07:38 08:00 Chloride 110 H (98-107) mmol/L BUN 5 L (7-17) mg/dL Glucose 117 H (74-99) mg/dL POC Glucose (mg/dL) 112 H 100 H (75-99) mg/dL AST 335 H (14-36) U/L ALT 440 H (4-34) U/L Total Protein 6.0 L (6.3-8.2) g/dL Albumin 3.3 L (3.5-5.0) g/dL
[2021-11-18 17:03] LABS: Glucose,Whole Blood 184 mg/dL (75-99)
[2021-11-18] MEDS: MONTELUKAST 10 MG TAB PO SCH (19:51)
[2021-11-18 20:15] LABS: Glucose,Whole Blood 100 mg/dL (75-99)
[2021-11-19] MEDS: AMPICILLIN-SULBACTAM 3 GM in SODIUM CHLORIDE 0.9% 100 ML IVPB SCH ×3 (00:05→16:55)
[2021-11-19] MEDS: SODIUM CHLORIDE 0.9% 1,000 ML IV SCH ×3 (04:48→20:19)
[2021-11-19 07:10] LABS: Basophils % (A) 1 %; Eosinophils # (A) 0.3 k/uL (0-0.7); Eosinophils % (A) 5 %; HCT 39.1 % (34.0-46.0); HGB 12.4 gm/dL (11.4-16.0); Hypochromasia Slight; Lymphocytes # (A) 2.1 k/uL (1.0-4.8); Lymphocytes % (A) 32 %; MCHC 31.7 g/dL (31.0-37.0); MCV 88.4 fL (80.0-100.0); Mean Platelet Volume 8.2; Monocytes # (A) 0.5 k/uL (0-1.0); Monocytes % (A) 8 %; Neutrophils # (A) 3.4 k/uL (1.3-7.7); Neutrophils % (A) 53 %; Platelet Count 262 k/uL (150-450); RBC 4.42 m/uL (3.80-5.40); RDW 13.2 % (11.5-15.5); WBC 6.5 k/uL (3.8-10.6)
[2021-11-19 07:18] LABS: ALT 297 U/L (4-34); AST 113 U/L (14-36); African American GFR (CKD) >90 (>60 ml/min/1.73 sqM); Albumin 3.3 g/dL (3.5-5.0); Albumin/Globulin Ratio 1.2; Alkaline Phosphatase 96 U/L (38-126); Anion Gap 4 mmol/L; Blood Urea Nitrogen 5 mg/dL (7-17); Calcium 8.8 mg/dL (8.4-10.2); Carbon Dioxide 25 mmol/L (22-30); Chloride 109 mmol/L (98-107); Globulin 2.8 g/dL; Glucose 98 mg/dL (74-99); Non-African American GFR(CKD) >90 (>60 ml/min/1.73 sqM); Potassium 4.2 mmol/L (3.5-5.1); Sodium 138 mmol/L (137-145); Total Bilirubin 0.6 mg/dL (0.2-1.3); Total Protein 6.1 g/dL (6.3-8.2)
[2021-11-19] MEDS: INSULIN ASPART (NovoLOG) 100 UNIT/ML VIAL SQ SCH ×3 (07:27→18:30)
[2021-11-19 07:40] LABS: Glucose,Whole Blood 105 mg/dL (75-99)
[2021-11-19] MEDS: HEPARIN SODIUM,PORCINE/PF 5,000 UNIT/0.5 ML SYRINGE SQ SCH ×2 (08:45→16:10)
[2021-11-19] MEDS: FLUoxetine HCL 20 MG CAP PO SCH (08:50)
[2021-11-19] MEDS: CHOLECALCIFEROL 125 MCG (5000 IU) TABLET PO SCH (08:54)
[2021-11-19] MEDS: lisinopriL 5 MG TAB PO SCH (08:54)
[2021-11-19] MEDS: NON FORMULARY DRUG (Omega-3 Fatty Acids/Fish Oil [Fish Oil 1,000 Mg Softgel] 1 EACH Capsul PO SCH (08:55)
[2021-11-19] MEDS: PANTOPRAZOLE 40 MG/10 ML VIAL IV SCH (10:02)
[2021-11-19 11:58] LABS: Glucose,Whole Blood 82 mg/dL (75-99)
--- NOTE | 2021-11-19 12:33 | P.PN ---
Subjective Progress Note Date: 11/19/21 No new complaints today. Pending lap caroline, then possible discharge today or tomorrow per surgery recs. Objective - Vital Signs Vital signs: Vital Signs Temp 97.8 F 11/19/21 12:14 Pulse 78 11/19/21 12:14 Resp 18 11/19/21 12:14 BP 129/81 11/19/21 12:14 Pulse Ox 98 11/19/21 12:14 Intake & Output 11/18/21 11/19/21 11/19/21 18:59 06:59 18:59 Intake Total 1500 1400 Balance 1500 1400 Intake: Intake, IV Titration 1400 Amount Ampicillin-Sulbactam 3 gm 100 In Sodium Chloride 0.9% 100 ml @ 200 mls/hr IVPB Q8H ANDRE Rx#:[id number] Sodium Chloride 0.9% 1, 1300 000 ml @ 130 mls/hr IV . Q7H42M ANDRE Rx#:[id number] Oral 1500 Other: Voiding Method Toilet Toilet # Voids 4 3 1 - Exam Gen: awake, alert HEENT: normocephalic, atraumatic, good hearing acuity, moist mucous membranes Resp: good air exchange, breathing comfortably with no accessory muscle use CVS: good distal perfusion x 4, GI: Nondistended, tenderness to palpation the right upper quadrant and epigastrium : no SPT, no CVAT, butler catheter is present MSK: no pitting edema, no clubbing Neuro: non-focal, moving all extremities Psych: cooperative, euthymic mood - Labs CBC & Chem 7: 11/19/21 06:19 11/19/21 06:19 Labs: Abnormal Lab Results - Last 24 Hours (Table) 11/18/21 11/18/21 11/19/21 Range/Units 17:02 20:14 06:19 Chloride 109 H (98-107) mmol/L BUN 5 L (7-17) mg/dL POC Glucose (mg/dL) 184 H 100 H (75-99) mg/dL AST 113 H (14-36) U/L ALT 297 H (4-34) U/L Total Protein 6.1 L (6.3-8.2) g/dL Albumin 3.3 L (3.5-5.0) g/dL 02/24/22 Range/Units 07:38 Chloride (98-107) mmol/L BUN (7-17) mg/dL POC Glucose (mg/dL) 105 H (75-99) mg/dL AST (14-36) U/L ALT (4-34) U/L Total Protein (6.3-8.2) g/dL Albumin (3.5-5.0) g/dL Assessment and Plan Assessment: Acute cholecystitis Choledocholithiasis -Management per primary team -MRCP pending -GI consult pending Diabetes type 2 Hypertension Hyperlipidemia ALLERGIC rhinitis Mild persistent asthma Bipolar disorder -Home medications reviewed and reconciled -DuoNeb's when necessary -Low-dose sliding scale insulin Thank you for this consult, [facility] is available 18/04 should you have any questions or concerns regarding this patient please reach out via perfect serve.
--- NOTE | 2021-11-19 13:49 | P.PN ---
Subjective Progress Note Date: 11/19/21 Principal diagnosis: Cholecystitis She was seen and examined is a follow-up. She came in with severe epigastric pain which subsided by Tuesday night Tuesday. She was scheduled to have a cholecystectomy however she had elevated liver enzymes therefore it was postponed. She had an MRCP that showed no evidence of choledocholithiasis. Plan is to proceed today with laparoscopic cholecystectomy with general surgery. LFTs continued to trend down total bilirubin 0.6 AST 113 ALT 297 alkaline phosphatase 96. Patient denies any abdominal pain. She has been tolerating a low-fat diet yesterday. She is nothing by mouth today ready for surgery. Objective - Vital Signs Vital signs: Vital Signs Temp 97.8 F 11/19/21 07:39 Pulse 59 L 11/19/21 07:39 Resp 15 11/19/21 07:39 BP 124/76 11/19/21 07:39 Pulse Ox 98 11/19/21 07:39 Intake & Output 11/18/21 11/19/21 11/19/21 18:59 06:59 18:59 Intake Total 1500 1400 Balance 1500 1400 Intake: Intake, IV Titration 1400 Amount Ampicillin-Sulbactam 3 gm 100 In Sodium Chloride 0.9% 100 ml @ 200 mls/hr IVPB Q8H [facility] Rx#:[id number] Sodium Chloride 0.9% 1, 1300 000 ml @ 130 mls/hr IV . [facility] Rx#:[id number] Oral 1500 Other: Voiding Method Toilet Toilet # Voids 4 3 1 - Exam General appearance: The patient is alert, oriented, appears in no acute distress. HET: Head is normocephalic and atraumatic. Conjunctiva pink. Sclera anicteric. Neck: Supple without lymphadenopathy. Abdomen: Soft, nontender, nondistended with bowel sounds. No guarding or rigidity. Extremities: Normal skin color and turgor. No pedal edema Skin: No rashes, no jaundice Neurological: No focal deficits. Alert and oriented -3. - Labs CBC & Chem 7: 11/19/21 06:19 11/19/21 06:19 Labs: Abnormal Lab Results - Last 24 Hours (Table) 11/18/21 11/18/21 11/19/21 Range/Units 17:02 20:14 06:19 Chloride 109 H (98-107) mmol/L BUN 5 L (7-17) mg/dL POC Glucose (mg/dL) 184 H 100 H (75-99) mg/dL AST 113 H (14-36) U/L ALT 297 H (4-34) U/L Total Protein 6.1 L (6.3-8.2) g/dL Albumin 3.3 L (3.5-5.0) g/dL 11/19/21 Range/Units 07:38 Chloride (98-107) mmol/L BUN (7-17) mg/dL POC Glucose (mg/dL) 105 H (75-99) mg/dL AST (14-36) U/L ALT (4-34) U/L Total Protein (6.3-8.2) g/dL Albumin (3.5-5.0) g/dL Assessment and Plan (1) Elevated LFTs Narrative/Plan: This is a 46 year old female who presented to the ER for complaints of severe epigastric pain. Pain started one week ago and progressively had gotten worse. She was noted to have elevated LFTs and gallstones on US with no dilated ducts. She was tentatively scheduled for cholecystectomy yesterday however she had elevation in her LFTs so patient was scheduled for an MRCP. MRCP was taken this morning however currently pending results. Patient's symptoms have improved significantly as well as her LFTs. Patient likely passed a CBD stone however she is asymptomatic at this time and LFTs are improved. Will await MRCP results, however ERCP is not likely indicated. Current Visit: Yes Status: Acute Code(s): R79.89 - OTHER SPECIFIED ABNORMAL FINDINGS OF BLOOD CHEMISTRY SNOMED Code(s): 798775598 (2) Acute cholecystitis Current Visit: Yes Status: Acute Code(s): K81.0 - ACUTE CHOLECYSTITIS SNOMED Code(s): 23386692 Plan: 1. Continue symptomatic and supportive care 2. MRCP reviewed, no evidence of choledocholithiasis 3. Diet per recommendations from general surgery 4. Continue with recommendations from surgical services 5. No plans on ERCP Thank you for this consultation, we will continue to follow. Dr. Jamil Souza I agree with the dictator's note, documented as a scribe by Fiorella Acosta.
[2021-11-19] MEDS: LACTATED RINGERS 1,000 ML IV SCH ×2 (16:07→23:36)
[2021-11-19 16:08] LABS: Glucose,Whole Blood 88 mg/dL (75-99)
[2021-11-19] MEDS ORDERED: fentaNYL (PF) 50 MCG/ML 2 ML AMP ONE (16:30)
[2021-11-19] MEDS ORDERED: PROPOFOL 10 MG/ML 20 ML VIAL IV ONE (16:30)
[2021-11-19] MEDS ORDERED: BUPIVACAIN-EPI 0.25%-1:200,000 30 ML VIAL SQ ONE (16:30)
[2021-11-19] MEDS ORDERED: GLYCOPYRROLATE 0.2 MG/ML 2 ML VIAL ONE (16:30)
[2021-11-19] MEDS ORDERED: ROCURONIUM 10 MG/ML (5 ML VIAL) IV ONE (16:30)
[2021-11-19] MEDS ORDERED: MIDAZOLAM 2 MG/2 ML VIAL ONE (16:30)
[2021-11-19] MEDS ORDERED: NEOSTIGMINE 1 MG/ML 10 ML VIAL ONE (16:30)
[2021-11-19] MEDS ORDERED: HYDROmorphone (PF) 1 MG/ML ONE (16:30)
[2021-11-19] MEDS ORDERED: LIDOCAINE 1% INJ 10MG/ML (20 ML MDV) ONE (16:30)
[2021-11-19] MEDS ORDERED: SUCCINYLCHOLINE CHLORIDE 100 MG/5 ML SYR IV ONE (16:30)
--- NOTE | 2021-11-19 17:10 | P.OP ---
Date of Procedure: 11/19/21 Preoperative Diagnosis: Cholecystitis Postoperative Diagnosis: Cholecystitis Procedure(s) Performed: Laparoscopic cholecystectomy Anesthesia: THO Surgeon: Kareem Keller Estimated Blood Loss (ml): 5 Pathology: other (Gallbladder) Condition: stable Disposition: floor Description of Procedure: The patient was placed on the operating table. The patient received a general endotracheal tube anesthesia. The patients abdomen was prepped and draped in the usual sterile fashion. Through an infraumbilical stab incision, the fascia of the anterior abdominal wall was grasped with a pair of Kochers and then the Veress needle was placed in the peritoneal cavity. Position of the Veress needle was confirmed with positive drop test. The abdomen was then insufflated. After adequate insufflation, the 10 mm trocar was placed in the peritoneal cavity. Following this the laparoscope was placed in the peritoneal cavity. The patient was placed in the head-up, right side up position and then a 5 mm trocar was placed in the right lateral and right subcostal position under direct visualization. A 8 mm trocar was placed in the epigastric position. The gallbladder was grasped in the fundus and infundibulum. Traction on the gallbladder was placed in the lateral and the cephalad positions. The triangle of Calot was visualized.. The cystic duct was bluntly dissected until the union of the cystic duct and common bile duct was seen. A critical view of safety was achieved. The cystic duct was then divided and sealed with the Harmonic scissors. A PDS Endoloop was then placed throughout the cystic duct stump. The cystic artery divided and sealed with the Harmonic scissors. The gallbladder was then removed from the liver bed using Harmonic scissors. The gallbladder was then extracted through the epigastric port site. Operative field was checked for any bleeding spots and Harmonic scissors was used to coagulate the liver bed. The abdomen was irrigated. The trocars were removed. The skin was closed using interrupted 3-0 Vicryl suture. Dermabond dressing were applied. The patient tolerated the procedure well.
[2021-11-19] MEDS ORDERED: HYDROmorphone 0.5 MG/0.5 ML SYRINGE IVP ONE ×3 (17:38→17:50)
[2021-11-19] MEDS ORDERED: KETOROLAC 15 MG/ML 1 ML VIAL IVP ONE (17:40)
[2021-11-19 17:48] LABS: Glucose,Whole Blood 103 mg/dL (75-99)
[2021-11-19] MEDS ORDERED: SODIUM CHLORIDE 0.9% 1,000 ML IV ONE (17:57)
[2021-11-19 19:26] LABS: Glucose,Whole Blood 88 mg/dL (75-99)
[2021-11-19] MEDS: MONTELUKAST 10 MG TAB PO SCH (20:18)
[2021-11-19] MEDS: HYDROmorphone 1 MG/ML 1 ML SYRINGE IVP PRN (23:33)
[2021-11-20] MEDS: AMPICILLIN-SULBACTAM 3 GM in SODIUM CHLORIDE 0.9% 100 ML IVPB SCH ×2 (00:12→08:16)
[2021-11-20] MEDS: SODIUM CHLORIDE 0.9% 1,000 ML IV SCH ×2 (03:40→12:48)
[2021-11-20 07:18] LABS: Glucose,Whole Blood 82 mg/dL (75-99)
[2021-11-20] MEDS: HYDROmorphone 1 MG/ML 1 ML SYRINGE IVP PRN (07:50)
[2021-11-20] MEDS: FLUoxetine HCL 20 MG CAP PO SCH (08:11)
[2021-11-20] MEDS: CHOLECALCIFEROL 125 MCG (5000 IU) TABLET PO SCH (08:11)
[2021-11-20] MEDS: lisinopriL 5 MG TAB PO SCH (08:12)
[2021-11-20] MEDS: PANTOPRAZOLE 40 MG/10 ML VIAL IV SCH (08:17)
[2021-11-20] MEDS ORDERED: ENOXAPARIN 40 MG/0.4 ML SYRINGE SQ SCH (09:00)
[2021-11-20] MEDS: NON FORMULARY DRUG (Omega-3 Fatty Acids/Fish Oil [Fish Oil 1,000 Mg Softgel] 1 EACH Capsul PO SCH (09:13)
[2021-11-20] MEDS: INSULIN ASPART (NovoLOG) 100 UNIT/ML VIAL SQ SCH ×2 (09:13→12:15)
[2021-11-20] MEDS ORDERED: HYDROcodone/APAP 5-325MG 1 EACH TAB PO PRN (09:29)
[2021-11-20 10:18] LABS: ALT 203 U/L (4-34); AST 57 U/L (14-36); African American GFR (CKD) >90 (>60 ml/min/1.73 sqM); Albumin 3.2 g/dL (3.5-5.0); Albumin/Globulin Ratio 1.1; Alkaline Phosphatase 74 U/L (38-126); Anion Gap 4 mmol/L; Blood Urea Nitrogen 3 mg/dL (7-17); Calcium 8.8 mg/dL (8.4-10.2); Carbon Dioxide 25 mmol/L (22-30); Chloride 107 mmol/L (98-107); Globulin 2.9 g/dL; Glucose 146 mg/dL (74-99); Non-African American GFR(CKD) >90 (>60 ml/min/1.73 sqM); Potassium 3.6 mmol/L (3.5-5.1); Sodium 136 mmol/L (137-145); Total Bilirubin 0.4 mg/dL (0.2-1.3); Total Protein 6.1 g/dL (6.3-8.2)
--- NOTE | 2021-11-20 10:23 | P.PN ---
Subjective Progress Note Date: 11/20/21 Pt doing well today, sitting in bed resting comfortably, eating her breakfast. Pain is well controlled. Objective - Vital Signs Vital signs: Vital Signs Temp 97.4 F L 11/20/21 07:50 Pulse 61 11/20/21 07:50 Resp 18 11/20/21 09:30 BP 131/86 11/20/21 07:50 Pulse Ox 95 11/20/21 07:50 Intake & Output 11/19/21 11/20/21 11/20/21 18:59 06:59 18:59 Intake Total 950 1900 Output Total 5 Balance 945 1900 Intake: IV 950 Intake, IV Titration 1400 Amount Ampicillin-Sulbactam 3 gm 100 In Sodium Chloride 0.9% 100 ml @ 200 mls/hr IVPB Q8H [facility] Rx#:[id number] Sodium Chloride 0.9% 1, 1300 000 ml @ 130 mls/hr IV . Q7H42M [facility] Rx#:[id number] Oral 500 Output: Estimated Blood Loss 5 Other: Voiding Method Toilet Toilet # Voids 1 3 - Exam Gen: awake, alert HEENT: normocephalic, atraumatic, good hearing acuity, moist mucous membranes Resp: good air exchange, breathing comfortably with no accessory muscle use CVS: good distal perfusion x 4, GI: Nondistended, tenderness to palpation the right upper quadrant and epigastrium : no SPT, no CVAT, butler catheter is present MSK: no pitting edema, no clubbing Neuro: non-focal, moving all extremities Psych: cooperative, euthymic mood - Labs CBC & Chem 7: 11/19/21 06:19 11/20/21 09:32 Labs: Abnormal Lab Results - Last 24 Hours (Table) 11/19/21 11/20/21 Range/Units 17:44 09:32 Sodium 136 L (137-145) mmol/L BUN 3 L (7-17) mg/dL Glucose 146 H (74-99) mg/dL POC Glucose (mg/dL) 103 H (75-99) mg/dL AST 57 H (14-36) U/L ALT 203 H (4-34) U/L Total Protein 6.1 L (6.3-8.2) g/dL Albumin 3.2 L (3.5-5.0) g/dL Assessment and Plan Assessment: Acute cholecystitis Choledocholithiasis -Management per primary team -MRCP with cholecystitis Diabetes type 2 Hypertension Hyperlipidemia ALLERGIC rhinitis Mild persistent asthma Bipolar disorder -Home medications reviewed and reconciled -DuoNeb's when necessary -Low-dose sliding scale insulin Thank you for this consult, [facility] is available 18/04 should you have any questions or concerns regarding this patient please reach out via perfect serve. Medically cleared for discharge, medicine med rec has been addressed.
[2021-11-20 11:56] LABS: Glucose,Whole Blood 99 mg/dL (75-99)
--- NOTE | 2021-11-20 11:56 | P.DS ---
Providers Date of admission: 11/19/21 08:06 Expected date of discharge: 11/20/21 Attending physician: Kareem Keller Consults: 11/17/21 13:39 Consult Physician Routine Consulting Provider: Lavonne Meier Consult Reason/Comments: medical management Do you want consulting provider notified?: Yes 11/17/21 14:42 Consult Physician Routine Consulting Provider: Nurys Souza Consult Reason/Comments: Elevated LFTs, possible choledocholithiasis Do you want consulting provider notified?: Yes Primary care physician: Maxx Thacker Hospital Course: Discharge diagnosis 1. Cholecystitis status post laparoscopic cholecystectomy 2. LFTs trending downwards. Patient possibly passed stone. No evidence of choledocholithiasis on MRCP Hospital course his is a 46-year-old female who presented with right upper quadrant and epigastric pain that started 2 days ago. Patient also had an episode of pain in the abdomen last week and this past Tuesday. Patient reports last night she was eating buttery popcorn and a little while later she started having severe sharp stabbing epigastric and right upper quadrant abdominal pain. She was also having severe heartburn. She reports the pain 10 out of 10. Initially she thought she was having a heart attack. She came into the ER for further evaluation. She was found to have elevated liver enzymes and bilirubin which are trending upwards. Ultrasound of the gallbladder had shown multiple gallstones and a enlarged gallbladder suspicious for cholecystitis. 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 Patient status post laparoscopic cholecystectomy. Patient tolerated surgery well. Pain is controlled. Tolerating diet. Afebrile. Up and ambulating. She is stable for discharge. Please refer to chart for any further details. Physician Horologist Apprentice note has been reviewed by physician. Signing provider agrees with the documented findings, assessment, and plan of care. Patient Condition at Discharge: Stable Plan - Discharge Summary Discharge Rx Participant: Yes New Discharge Prescriptions: New Docusate [Colace] 100 mg PO BID #30 capsule HYDROcodone/APAP 5-325MG [[place] 5-325] 1 tab PO Q6HR PRN 3 Days #12 tab PRN Reason: Pain Continue FLUoxetine HCL [PROzac] 60 mg PO DAILY metFORMIN HCL [Glucophage] 1,000 mg PO BID Montelukast Sodium [Singulair] 10 mg PO HS Cholecalciferol (Vitamin D3) [Vitamin D3 (125 MCG = 5,000 IU)] 125 mcg PO DAILY [place]-3 Fatty Acids/Fish Oil [Fish Oil 1,000 mg Softgel] 1 cap PO DAILY lisinopriL [Zestril] 5 mg PO DAILY Discharge Medication List FLUoxetine HCL [PROzac] 60 mg PO DAILY 03/18/18 [History] Cholecalciferol (Vitamin D3) [Vitamin D3 (125 MCG = 5,000 IU)] 125 mcg PO DAILY 11/16/21 [History] Montelukast Sodium [Singulair] 10 mg PO HS 11/16/21 [History] [place]-3 Fatty Acids/Fish Oil [Fish Oil 1,000 mg Softgel] 1 cap PO DAILY 11/16/21 [History] lisinopriL [Zestril] 5 mg PO DAILY 11/16/21 [History] metFORMIN HCL [Glucophage] 1,000 mg PO BID 11/16/21 [History] Docusate [Colace] 100 mg PO BID #30 capsule 11/20/21 [Rx] HYDROcodone/APAP 5-325MG [[place] 5-325] 1 tab PO Q6HR PRN 3 Days #12 tab 11/20/21 [Rx] Follow up Appointment(s)/Referral(s): Maxx Thacker MD [Primary Care Provider] - 1-2 days Kareem Keller MD [STAFF PHYSICIAN] - 1 Week Activity/Diet/Wound Care/Special Instructions: No driving while taking [place] No lifting over 10 pounds You may shower. No soaking or tub baths for 2 weeks Very light activity until you are reevaluated at your follow up appointment with your surgeon Discharge Disposition: HOME SELF-CARE
[2021-11-20 12:18] VITALS: BP 115/71; PULSE 63; RESP 19; TEMP 97.6
--- NOTE | 2021-11-20 16:14 | P.PN ---
Subjective Progress Note Date: 11/20/21 Principal diagnosis: Cholecystitis She was seen and examined is a follow-up. She came in with severe epigastric pain which subsided by Tuesday night Tuesday. She was scheduled to have a cholecystectomy however she had elevated liver enzymes therefore it was postponed. She had an MRCP that showed no evidence of choledocholithiasis. Plan is to proceed today with laparoscopic cholecystectomy with general surgery. LFTs continued to trend down and she underwent a laparoscopic cholecystectomy yesterday. Today she is seen and evaluated lying in bed. LFTs remain unremarkable. Abdominal pain has improved and is only having some surgical pain. Denies any flatus or bowel movement. She has been up and ambulating. She denies any nausea or vomiting. Objective - Vital Signs Vital signs: Vital Signs Temp 97.4 F L 11/20/21 07:50 Pulse 61 11/20/21 07:50 Resp 18 11/20/21 09:30 BP 131/86 11/20/21 07:50 Pulse Ox 95 11/20/21 07:50 Intake & Output 11/19/21 11/20/21 11/20/21 18:59 06:59 18:59 Intake Total 950 1900 Output Total 5 Balance 945 1900 Intake: IV 950 Intake, IV Titration 1400 Amount Ampicillin-Sulbactam 3 gm 100 In Sodium Chloride 0.9% 100 ml @ 200 mls/hr IVPB Q8H [facility] Rx#:[id number] Sodium Chloride 0.9% 1, 1300 000 ml @ 130 mls/hr IV . Q7H42M [facility] Rx#:[id number] Oral 500 Output: Estimated Blood Loss 5 Other: Voiding Method Toilet Toilet # Voids 1 3 - Exam General appearance: The patient is alert, oriented, appears in no acute distress. HET: Head is normocephalic and atraumatic. Conjunctiva pink. Sclera anicteric. Neck: Supple without lymphadenopathy. Abdomen: Soft, mild surgical tenderness, incision site well approximated, clean dry and intact, nondistended with bowel sounds. No guarding or rigidity. Extremities: Normal skin color and turgor. No pedal edema Skin: No rashes, no jaundice Neurological: No focal deficits. Alert and oriented -3. - Labs CBC & Chem 7: 11/19/21 06:19 11/20/21 09:32 Labs: Abnormal Lab Results - Last 24 Hours (Table) 11/19/21 11/20/21 Range/Units 17:44 09:32 Sodium 136 L (137-145) mmol/L BUN 3 L (7-17) mg/dL Glucose 146 H (74-99) mg/dL POC Glucose (mg/dL) 103 H (75-99) mg/dL AST 57 H (14-36) U/L ALT 203 H (4-34) U/L Total Protein 6.1 L (6.3-8.2) g/dL Albumin 3.2 L (3.5-5.0) g/dL Assessment and Plan (1) Elevated LFTs Narrative/Plan: This is a 46 year old female who presented to the ER for complaints of severe epigastric pain. Pain started one week ago and progressively had gotten worse. She was noted to have elevated LFTs and gallstones on US with no dilated ducts. She was tentatively scheduled for cholecystectomy yesterday however she had elevation in her LFTs so patient was scheduled for an MRCP. MRCP was taken this morning however currently pending results. Patient's symptoms have improved significantly as well as her LFTs. Patient likely passed a CBD stone however she is asymptomatic at this time and LFTs are improved. Will await MRCP results, however ERCP is not likely indicated. Status: Acute Code(s): R79.89 - OTHER SPECIFIED ABNORMAL FINDINGS OF BLOOD CHEMISTRY SNOMED Code(s): 666993938 (2) Acute cholecystitis Narrative/Plan: The patient is status post op day #1 for laparoscopic cholecystectomy Status: Acute Code(s): K81.0 - ACUTE CHOLECYSTITIS SNOMED Code(s): 08741368 Plan: 1. Continue symptomatic and supportive care 2. Diet per recommendations from general surgery 3. Patient is cleared from gastroenterology for discharge. No follow-up needed. Thank you for this consultation, we will sign off at this time. Dr. Jamil Souza I agree with the dictator's note, documented as a scribe by Fiorella VELIZ.
== END 2021-11-20 13:05 | disposition home or self-care (01) ==
LOC: EC 21:11 → 5NMEDONC 23:44 → INTOOBSV 11-19 08:06 → OBSVTOIN 11-19 08:06 → UNDODISIN 11-20 13:05
PROVIDERS: ADMIT Surgery; ATTEND Surgery
DX: K80.12 Calculus of gallbladder with acute and chronic cholecystitis without obstruction (principal); F31.9 Bipolar disorder, unspecified; R16.0 Hepatomegaly, not elsewhere classified; G43.909 Migraine, unspecified, not intractable, without status migrainosus; I10 Essential (primary) hypertension; E11.9 Type 2 diabetes mellitus without complications; F17.210 Nicotine dependence, cigarettes, uncomplicated; J45.30 Mild persistent asthma, uncomplicated; R79.89 Other specified abnormal findings of blood chemistry; E78.5 Hyperlipidemia, unspecified; K44.9 Diaphragmatic hernia without obstruction or gangrene; I44.0 Atrioventricular block, first degree; Z20.822 Contact with and (suspected) exposure to COVID-19; Z98.84 Bariatric surgery status; Z79.899 Other long term (current) drug therapy; Z79.84 Long term (current) use of oral hypoglycemic drugs; Z88.5 Allergy status to narcotic agent; Z71.9 Counseling, unspecified; Z90.81 Acquired absence of spleen; Z90.49 Acquired absence of other specified parts of digestive tract
CPT/HCPCS: 96376; 96365; 96375 ×2; 99285; 36415; 93005; 85379; 88304; 83880; 80053 ×5; 83690; 83735 ×2; 84100; 84484; 85025 ×4; 85610; 85730; 81003; 81025; 87635; 71046; 76705; 74181; 47562; G0378 ×4; J2250; J2060; J2270; J2710; J2405 ×2; J2001; J1650; J3010; J1170 ×4; J0295 ×4; J1885; J0330; J2704; C9113 ×5; J1644 ×3; 96374

== ENCOUNTER 2023-04-23 16:53 | Emergency (ER) | payer BC ==
[2023-04-23 16:58] VITALS: RESP 18; TEMP 98.7
[2023-04-23] MEDS ORDERED: SODIUM CHLORIDE 0.9% 1,000 ML IV STA (17:51)
--- NOTE | 2023-04-23 18:01 | ED ---
ENT HPI - General Chief complaint: ENT Stated complaint: throat irritation Time Seen by Provider: 04/23/23 17:45 Source: patient, RN notes reviewed Mode of arrival: ambulatory Limitations: no limitations - History of Present Illness Initial comments: This is a 48-year-old female who presents to the emergency department for difficulty swallowing. States that a couple of days ago she was sick and vomiting profusely. Shortly afterwards she started to feel like she had something stuck in her throat. Whenever she tries to take sips of water, she throws it back up. Feels like she is losing weight and becoming very dehydrated because she cannot keep anything down. This happened to her once a couple of years ago, however she swallowed something hard and finally felt something dislodge, at which point she could start eating normally again. However, she has not been able to get any food to dislodge at this point. Denies any chest pain or shortness of breath. Denies any fevers, chills, sore throat, cough, dyspnea, chest pain, palpitations, diarrhea, back pain, or headaches. MD complaint: other (Dysphagia) - Related Data Home Medications Medication Instructions Recorded Confirmed FLUoxetine HCL [PROzac] 60 mg PO DAILY 03/18/18 11/16/21 Cholecalciferol (Vitamin D3) 125 mcg PO DAILY 11/16/21 11/16/21 [Vitamin D3 (125 MCG = 5,000 IU)] Montelukast Sodium [Singulair] 10 mg PO HS 11/16/21 11/16/21 [place]-3 Fatty Acids/Fish Oil [Fish 1 cap PO DAILY 11/16/21 11/16/21 Oil 1,000 mg Softgel] lisinopriL [Zestril] 5 mg PO DAILY 11/16/21 11/16/21 metFORMIN HCL [Glucophage] 1,000 mg PO BID 11/16/21 11/16/21 Previous Rx's Medication Instructions Recorded Docusate [Colace] 100 mg PO BID #30 capsule 11/20/21 HYDROcodone/APAP 5-325MG [[place] 1 tab PO Q6HR PRN 3 Days #12 tab 11/20/21 5-325] Allergies Allergy/AdvReac Type Severity Reaction Status Date / Time tramadol HCl [From Merged With [facility]] Allergy Unknown Verified 04/23/23 16:58 Review of Systems ROS Statement: Those systems with pertinent positive or pertinent negative responses have been documented in the HPI. ROS Other: All systems not noted in ROS Statement are negative. Past Medical History Past Medical History: Asthma, Diabetes Mellitus, Hypertension Additional Past Medical History / Comment(s): migraines History of Any Multi-Drug Resistant Organisms: None Reported Past Surgical History: Appendectomy, Bariatric Surgery, Section, Orthopedic Surgery, Tonsillectomy Additional Past Surgical History / Comment(s): splenectomy, ACL L leg Past Anesthesia/Blood Transfusion Reactions: No Reported Reaction Past Psychological History: Bipolar, Depression Smoking Status: Current every day smoker Past Alcohol Use History: Occasional General Exam Limitations: no limitations General appearance: alert, in no apparent distress Head exam: Present: atraumatic, normocephalic, normal inspection ENT exam: Present: normal exam, normal oropharynx, mucous membranes moist Neck exam: Present: normal inspection. Absent: tenderness, meningismus, lymphadenopathy Respiratory exam: Present: normal lung sounds bilaterally. Absent: respiratory distress, wheezes, rales, rhonchi, stridor Cardiovascular Exam: Present: regular rate, normal rhythm, normal heart sounds. Absent: systolic murmur, diastolic murmur, rubs, gallop, clicks Neurological exam: Present: alert, oriented X3, CN II-XII intact Psychiatric exam: Present: normal affect, normal mood Skin exam: Present: warm, dry, intact, normal color. Absent: rash Course Vital Signs 04/23/23 04/23/23 16:56 20:52 Temperature 98.7 F Pulse Rate 99 89 Respiratory 18 18 Rate Blood Pressure 184/117 141/95 O2 Sat by Pulse 99 98 Oximetry Medical Decision Making - Medical Decision Making This is a 48-year-old female who presents to the emergency department for dysphasia. Was pt. sent in by a medical professional or institution? @ -No Did you speak to anyone other than the patient for history? @ -No Did you review nursing and triage notes? @ -Yes, and I agree, it is accurate with regards to the patient's symptoms. Were old charts reviewed? @ -No Differential Diagnosis? @ -Differential Dysphagia: Food impaction, GERD, nervous system disorder, this is not meant to be an all- inclusive list. EKG interpreted by me (3pts min.)? @ -Not obtained X-rays interpreted by me (1pt min.)? @ -Not obtained CT interpreted by me (1pt min.)? @ -Computed tomography scan of the soft tissue neck and chest/abdomen obtained. My interpretation identifies a distended fluid-filled esophagus. U/S interpreted by me (1pt. min.)? @ -Not obtained What testing was considered but not performed? (CT, X-rays, U/S, labs)? Why? @ -None What meds were considered but not given? Why? @ -None Did you discuss the management of the patient with other professionals? @ -Yes, Dr. Barron, GI at [facility], who is agreeable to transfer. He said that he put her on the schedule at 7:30am tomorrow morning to have potential esophageal disimpaction. She can come to the emergency department shortly before the procedure, or present to the emergency department now if she feels this is an emergency, with the understanding that it probably won't be addressed until the morning. Did you reconcile home meds? @ -No Was smoking cessation discussed for >3mins.? @ -No Was critical care preformed (if so, how long)? @ -No Were there social determinants of health that impacted care today? How? (Homelessness, low income, unemployed, alcoholism, drug addiction, transportation, low edu. Level, literacy, decrease access to med. care, shelter, rehab)? @ -No Was there de-escalation of care discussed even if they declined? (Discuss DNR or withdrawal of care, Hospice)? @ -No What co-morbidities impacted this encounter? (DM, HTN, Smoking, COPD, CAD, Cancer, CVA, Hep., AIDS, mental health diagnosis, sleep apnea, morbid obesity)? @ -None Was patient admitted / discharged? @ -Transferred to [facility]. Patient was attempting to drink fluids while in the emergency department, however she continued to throw them right back up. She did feel very dehydrated and was given a liter bolus of IV fluids. We obtained a computed tomography scan of the soft tissue neck and chest/abdomen. This revealed a distended fluid-filled esophagus with irregular eccentric wall thickening of the distal esophagus. We tried 2 rounds of glucagon with Valium followed by the patient drinking carbonated beverages. However, the patient did not have any relief. Discussed with the patient that we do not have GI services available at our facility, and she would need to be transferred out for further care. I spoke with GI at [facility], Dr. Barron, who is agreeable to the patient being transferred. He put the patient on the schedule for 7:30 AM tomorrow morning for potential esophageal disimpaction. He advised that she can either present to the emergency department shortly before the procedure, or go there now if she feels it is an emergency, however this most likely won't be addressed until the morning. Patient opted to go home for the meantime with the plan to present there first thing tomorrow morning. She was sent home with her packet of information. If she ends up going tonight, Dr. Mondragon, ED attending, is the accepting provider. Undiagnosed new problem with uncertain prognosis? @ -None Drug Therapy requiring intensive monitoring for toxicity (Heparin, Nitro, Insulin, Cardizem)? @ -None Were any procedures done? @ -None Diagnosis/symptom? @ -Esophageal food impaction Acute, or Chronic, or Acute on Chronic? @ -Acute Uncomplicated (without systemic symptoms) or Complicated (systemic symptoms)? @ -Uncomplicated Side effects of treatment? @ -None Exacerbation, Progression, or Severe Exacerbation] @ -Not applicable Poses a threat to life or bodily function? @ -Yes This case was discussed in detail with the attending ED physician, Dr. Grimes. Presentation, findings, and treatment plan discussed in detail as well. - Radiology Data Radiology results: report reviewed, image reviewed Disposition Clinical Impression: Esophageal obstruction due to food impaction Disposition: OTHER INSTITUTION NOT DEFINED Referrals: Maxx Thacker MD [Primary Care Provider] - 1-2 days - Out of Hospital Transfer - Req. Specs Out of Hospital Transfer - Requested Specifics: Other Emergency Center ([facility])
--- NOTE | 2023-04-23 18:32 | CT ---
EXAMINATION TYPE: CT chest abdomen wo con CT DLP: Combined DLP of 797.5 mGycm, Automated exposure control for dose reduction was used. DATE OF EXAM: 04/23/2023 6:22 PM COMPARISON: MRI MRCP 11/18/2021 CLINICAL INDICATION:Female, 48 years old with history of Dysphagia, possible food impaction; PHH, Dys phagia, possible food impaction. Technique: Multiple axial images of the chest and abdomen without the administration of intravenous o r oral contrast. Two-dimensional coronal and sagittal reconstructions were obtained. Findings: Evaluation is limited due to lack of intravenous and oral contrast. CHEST: LUNGS/ PLEURA: No pleural effusion, pneumothorax, focal consolidation. No suspicious pulmonary nodule s or masses. AIRWAY: Patent and unremarkable.. HEART: Size within normal limits. No pericardial effusion. MEDIASTINUM: No gross evidence of adenopathy. VASCULATURE: No aortic aneurysm. MUSCULOSKELETAL: No acute osseous abnormalities. SOFT TISSUES/LYMPH NODES: Unremarkable. LOWER NECK: No significant findings. Other: Mildly distended fluid-filled esophagus. There is a suggested abnormal irregular wall of the d istal esophagus measuring up to 1.1 series (series 301, image 33). Few mildly prominent paraesophagea l lymph nodes identified measuring 5 mm short axis. ABDOMEN: ABDOMEN LIVER: Unremarkable noncontrast appearance GALLBLADDER AND BILE DUCTS: The gallbladder is surgically absent. PANCREAS: Unremarkable noncontrast appearance SPLEEN: Unremarkable, adjacent splenules. ADRENAL GLANDS: Unremarkable noncontrast appearance. KIDNEYS AND URETERS: No evidence of hydronephrosis or renal calculus. STOMACH AND BOWEL: Surgical changes from gastric sleeve. Sigmoid diverticulosis without evidence for acute diverticulitis. No evidence of bowel obstruction. PERITONEUM: No evidence of pneumoperitoneum or free fluid. VASCULATURE: No evidence of aortic aneurysm. MUSCULOSKELETAL: No acute osseous abnormalities LYMPH NODES: No gross evidence for lymphadenopathy. SOFT TISSUE/ABDOMINAL WALL: Unremarkable IMPRESSION: 1. Postsurgical changes of gastric sleeve with a distended fluid-filled esophagus with irregular ecc entric suggested wall thickening in the distal esophagus. Direct visualization is recommended. 2. Colonic diverticulosis without evidence for acute diverticulitis.
--- NOTE | 2023-04-23 18:35 | CT ---
EXAMINATION TYPE: CT soft tissue neck wo con CT DLP: Combined DLP of 797.5 mGycm, Automated exposure control for dose reduction was used. DATE OF EXAM: 04/23/2023 6:22 PM COMPARISON: CT chest abdomen of the same date. CLINICAL INDICATION:Female, 48 years old with history of Dysphagia, possible food impaction; PHH, Dys phagia, possible food impaction. TECHNIQUE: Standard CT of the neck of the administration intravenous or oral contrast. Axial sections with coronal and sagittal reformats were obtained. FINDINGS: Evaluation is limited due to lack of intravenous and oral contrast. Brain: Visualized portions are grossly unremarkable. Orbits: Unremarkable Sinuses: Grossly unremarkable. Suprahyoid Neck: The oropharynx, oral cavity, parapharyngeal and retropharyngeal spaces are clear and symmetric. The nasopharynx is unremarkable. Infrahyoid Neck: The larynx, hypopharynx, and supraglottic area are clear and symmetric. Parotid Glands: Unremarkable. Submandibular Glands: Unremarkable. Musculoskeletal: No acute osseous pathology. Degenerative changes of the cervical spine at C6-C7 with disc space narrowing, endplate sclerosis and anterior osteophytosis. Broad-based disc bulge at C5-C6 with at least mild spinal canal narrowing. Lymph nodes: Multiple nonenlarged lymph nodes are seen along both anterior chains of the neck. Vascular structures: Thoracic Inlet/airway: Airway is patent. Please refer to dedicated CT chest abdomen of the same day f or findings. Soft tissues/Thyroid: Thyroid and remainder of the soft tissues are unremarkable. Other: none. IMPRESSION No CT evidence for significant abnormality within the neck.
[2023-04-23] MEDS ORDERED: GLUCAGON 1 MG/ML VIAL IVP STA ×2 (18:38→19:30)
[2023-04-23 20:56] VITALS: BP 141/95; PULSE 89
== END 2023-04-23 20:58 | disposition other institution (70) ==
LOC: EC 16:53
DX: K22.2 Esophageal obstruction (principal); J45.909 Unspecified asthma, uncomplicated; E11.9 Type 2 diabetes mellitus without complications; I10 Essential (primary) hypertension; F31.9 Bipolar disorder, unspecified; F17.200 Nicotine dependence, unspecified, uncomplicated; Z88.8 Allergy status to other drugs, medicaments and biological substances; Z79.84 Long term (current) use of oral hypoglycemic drugs; Z79.899 Other long term (current) drug therapy
CPT/HCPCS: 70490; 71250; 74150; 99285; 96374; 96375; 96376 ×2; 96361; J1610; J3360

== ENCOUNTER 2024-05-20 11:34 | Observation (INO) | payer BC ==
[2024-05-20] MEDS: SODIUM CHLORIDE 0.9% 1,000 ML IV STA ×2 (12:28→14:20)
[2024-05-20] MEDS: KETOROLAC 15 MG/ML 1 ML VIAL IVP STA (12:28)
[2024-05-20] MEDS: methylPREDNISolone SOD SUCCI 125 MG/2 ML VIAL IV STA (12:34)
[2024-05-20] MEDS: FAMOTIDINE 20 MG/2 ML VIAL IV STA (12:34)
[2024-05-20] MEDS: diphenhydrAMINE 50 MG/ML 1 ML VIAL IVP STA (12:35)
--- NOTE | 2024-05-20 13:20 | ED ---
General Adult HPI - General Chief complaint: Extremity Injury, Upper Stated complaint: Bee sting Time Seen by Provider: 05/20/24 12:15 Source: patient, RN notes reviewed, old records reviewed Mode of arrival: ambulatory Limitations: no limitations - History of Present Illness Initial comments: Patient is a 49-year-old female presents emergency department complaining of bug bite or sting to right hand with swelling. Is also complaining of generalized itching on her other arm as well. This occurred approximately an hour prior to arrival. Has history of asthma, diabetes, hypertension. Unknown what bit her. It was on her right pointer finger near the knuckle. Her hand became edematous. She presents for further evaluation. Denies any difficulty in breathing. Denies any nausea or vomiting. Presents for further evaluation at this time. - Related Data Home Medications Medication Instructions Recorded Confirmed Montelukast Sodium [Singulair] 10 mg PO DAILY 11/16/21 05/20/24 FLUoxetine HCL [PROzac] 20 mg PO DAILY 05/20/24 05/20/24 FLUoxetine HCL [PROzac] 40 mg PO DAILY 05/20/24 05/20/24 busPIRone HCl [Buspar] 5 mg PO TID 05/20/24 05/20/24 lisinopriL [Zestril] 10 mg PO DAILY 05/20/24 05/20/24 Allergies Allergy/AdvReac Type Severity Reaction Status Date / Time tramadol HCl [From [facility]] Allergy Unknown Verified 05/20/24 14:40 Review of Systems ROS Statement: Those systems with pertinent positive or pertinent negative responses have been documented in the HPI. Review of Systems: CONST: Denies fever EYES: Denies blurry vision ENT: Denies nasal congestion C/V: Denies Chest pain RESP: Denies shortness of breath GI: Denies abdominal pain : Denies dysuria SKIN: Endorses right hand bug bite or sting, edema. MSK: Denies joint pain. NEURO: Denies headache ROS Other: All systems not noted in ROS Statement are negative. Past Medical History Past Medical History: Asthma, Diabetes Mellitus, Hypertension Additional Past Medical History / Comment(s): migraines History of Any Multi-Drug Resistant Organisms: None Reported Past Surgical History: Appendectomy, Bariatric Surgery, Section, Orthopedic Surgery, Tonsillectomy Additional Past Surgical History / Comment(s): splenectomy, ACL L leg Past Anesthesia/Blood Transfusion Reactions: No Reported Reaction Past Psychological History: Bipolar, Depression Smoking Status: Current every day smoker Past Alcohol Use History: Occasional General Exam - General Exam Comments Initial Comments: General: Appears in no acute distress. HEAD: Normal with no signs of head trauma. EYES: PERRLA, EOMI, conjunctiva normal, no discharge. ENT: Hearing grossly intact, normal oropharynx. No posterior oropharyngeal swelling. No tongue edema. Uvula is midline. No stridor auscultated of the throat. RESPIRATORY: Clear breath sounds bilaterally. No wheezes, rales, or rhonchi. N o hypoxia. No increased work of breathing. C/V: Regular rate and rhythm. S1 and S2 auscultated, no edema, peripheral pulses 2+ and intact throughout ABD: Abd is soft, nontender, nondistended EXT: Normal range of motion, no obvious deformity. Right hand swelling.Patient also has edema spreading up the right arm.No obvious evidence of compartment syndrome at this time. SKIN: Bite or sting located on right index finger near the first knuckle. Generalized hand edema. No significant rash appreciated. NEURO: Alert and oriented x 4. Limitations: no limitations Course Vital Signs 05/20/24 05/20/24 05/20/24 11:43 14:26 16:26 Temperature 98.5 F 98.1 F Pulse Rate 68 70 73 Respiratory 16 18 18 Rate Blood Pressure 152/94 125/81 121/79 O2 Sat by Pulse 100 98 99 Oximetry Medical Decision Making - Medical Decision Making Was pt. sent in by a medical professional or institution (, PA, [employer], urgent care, hospital, or senior care...) When possible be specific @ -No Did you speak to anyone other than the patient for history (EMS, parent, family, police, friend...)? What history was obtained from this source @ -No Did you review nursing and triage notes (agree or disagree)? Why? @ -I reviewed and agree with nursing and triage notes Were old charts reviewed (outside hosp., previous admission, EMS record, old EKG, old radiological studies, urgent care reports/EKG's, senior care records)? Report findings @ -No old charts were reviewed Differential Diagnosis (chest pain, altered mental status, abdominal pain women, abdominal pain men, vaginal bleeding, weakness, fever, dyspnea, syncope, headache, dizziness, GI bleed, back pain, seizure, CVA, palpatations, mental health, musculoskeletal)? @ -Allergic reaction, anaphylaxis, bug bite, bee sting. This list is not all inclusive. EKG interpreted by me (3pts min.). @ -None done X-rays interpreted by me (1pt min.). @ -None done CT interpreted by me (1pt min.). @ -None done U/S interpreted by me (1pt. min.). @ -None done What testing was considered but not performed or refused? (CT, X-rays, U/S, labs)? Why? @ -None What meds were considered but not given or refused? Why? @ -None Did you discuss the management of the patient with other professionals (professionals i.e. , PA, [employer], lab, RT, psych nurse, social work program coordinator, freelance court reporter, teacher, student liaison officer, case planner)? Give summary @ -No Was smoking cessation discussed for >3mins.? @ -No Was critical care preformed (if so, how long)? @ -No Were there social determinants of health that impacted care today? How? (Homelessness, low income, unemployed, alcoholism, drug addiction, transportation, low edu. Level, literacy, decrease access to med. care, snf, rehab)? @ -No Was there de-escalation of care discussed even if they declined (Discuss DNR or withdrawal of care, Hospice)? DNR status @ -No What co-morbidities impacted this encounter? (DM, HTN, Smoking, COPD, CAD, Cancer, CVA, ARF, Chemo, Hep., AIDS, mental health diagnosis, sleep apnea, morbid obesity)? @ -None Was patient admitted / discharged? Hospital course, mention meds given and route, prescriptions, significant lab abnormalities, going to OR and other pertinent info. @ -Patient presents with an allergic reaction to either a bee sting or bug bite. Seems to be localized to the skin. Is not anaphylactic. Vital signs within acceptable limits. She will be given an allergy cocktail consisting of IV Benadryl, Solu-Medrol, famotidine, fluids as well as IV Toradol. Vital signs within acceptable limits. No respiratory distress at this time. No stridor. Patient was in agreement this plan. She will be observed for at least 2 hours here in the department. Patient swelling did not improve. She also has swelling of the forearm. Due to the amount of edema with minimal improvement after multiple hours of observa tion, patient will be admitted to the hospital on 8 IV antibiotics empirically for cellulitis. Still does not appear to have compartment syndrome but I would like to evaluate and monitor the patient overnight. She was in agreement this plan. She is placed on IV Decadron every 6 hours, as well as the IV vancomycin. Patient started on IV fluids as well. Will continue to manage and monitor. Basic labs were obtained and are unremarkable. I consulted infectious disease for evaluation of the patient. I spoke with the admitting provider, Dr. Larsen of [facility] who accepted the admission. Undiagnosed new problem with uncertain prognosis? @ -No Drug Therapy requiring intensive monitoring for toxicity (Heparin, Nitro, Insulin, Cardizem)? @ -No Were any procedures done? @ -No Diagnosis/symptom? @ -Bug bite, allergic reaction Acute, or Chronic, or Acute on Chronic? @ -Acute Uncomplicated (without systemic symptoms) or Complicated (systemic symptoms)? @ -Complicated Side effects of treatment? @ -No Exacerbation, Progression, or Severe Exacerbation? @ -No Poses a threat to life or bodily function? How? (Chest pain, [place], [place], pneumonia, PE, COPD, DKA, ARF, appy, cholecystitis, CVA, Diverticulitis, Homicidal, Suicidal, threat to staff... and all critical care pts) @ -Unlikely - Lab Data Result diagrams: 05/20/24 14:01 05/20/24 14:01 Lab Results 05/20/24 05/20/24 Range/Units 14:01 14:01 WBC 5.5 (3.8-10.6) k/uL RBC 5.00 (3.80-5.40) m/uL Hgb 14.9 (11.4-16.0) gm/dL Hct 44.7 (34.0-46.0) % MCV 89.3 (80.0-100.0) fL MCH 29.8 (25.0-35.0) pg MCHC 33.3 (31.0-37.0) g/dL RDW 12.7 (11.5-15.5) % Plt Count 315 (150-450) k/uL MPV 8.1 Neutrophils % 55 % Lymphocytes % 30 % Monocytes % 8 % Eosinophils % 5 % Basophils % 0 % Neutrophils # 3.0 (1.3-7.7) k/uL Lymphocytes # 1.7 (1.0-4.8) k/uL Monocytes # 0.4 (0-1.0) k/uL Eosinophils # 0.3 (0-0.7) k/uL Basophils # 0.0 (0-0.2) k/uL Sodium 138 (137-145) mmol/L Potassium 4.3 (3.5-5.1) mmol/L Chloride 104 (98-107) mmol/L Carbon Dioxide 20 L (22-30) mmol/L Anion Gap 14 mmol/L BUN 15 (7-17) mg/dL Creatinine 0.65 (0.52-1.04) mg/dL Est GFR (CKD-EPI)AfAm >90 (>60 ml/min/1.73 sqM) Est GFR (CKD-EPI)NonAf >90 (>60 ml/min/1.73 sqM) Glucose 105 H (74-99) mg/dL Calcium 9.2 (8.4-10.2) mg/dL Disposition Clinical Impression: Bug bite, Cellulitis Disposition: ADMITTED IP TO THIS HOSP Condition: Stable Time of Disposition: 15:20
[2024-05-20] MEDS ORDERED: VANCOMYCIN IV PER PHARMACY 1 EACH MISC MISCELLANE PRN (13:58)
[2024-05-20 14:10] LABS: Basophils % (A) 0 %; Eosinophils # (A) 0.3 k/uL (0-0.7); Eosinophils % (A) 5 %; HCT 44.7 % (34.0-46.0); HGB 14.9 gm/dL (11.4-16.0); Lymphocytes # (A) 1.7 k/uL (1.0-4.8); Lymphocytes % (A) 30 %; MCH 29.8 pg (25.0-35.0); MCHC 33.3 g/dL (31.0-37.0); MCV 89.3 fL (80.0-100.0); Mean Platelet Volume 8.1; Monocytes # (A) 0.4 k/uL (0-1.0); Monocytes % (A) 8 %; Neutrophils % (A) 55 %; Platelet Count 315 k/uL (150-450); RDW 12.7 % (11.5-15.5); WBC 5.5 k/uL (3.8-10.6)
[2024-05-20] MEDS: VANCOMYCIN 1,500 MG in SODIUM CHLORIDE 0.9% 500 ML 500 ML IVPB ONE (14:21)
[2024-05-20 14:26] LABS: African American GFR (CKD) >90 (>60 ml/min/1.73 sqM); Anion Gap 14 mmol/L; Blood Urea Nitrogen 15 mg/dL (7-17); Calcium 9.2 mg/dL (8.4-10.2); Carbon Dioxide 20 mmol/L (22-30); Chloride 104 mmol/L (98-107); Glucose 105 mg/dL (74-99); Non-African American GFR(CKD) >90 (>60 ml/min/1.73 sqM); Potassium 4.3 mmol/L (3.5-5.1); Sodium 138 mmol/L (137-145)
[2024-05-20] MEDS ORDERED: NALOXONE 0.4 MG/ML 1 ML VIAL IV PRN ×2 (16:00→16:21)
[2024-05-20] MEDS ORDERED: ONDANSETRON 4 MG/2 ML VIAL IVP PRN (16:00)
--- NOTE | 2024-05-20 16:18 | P.HPIM ---
History of Present Illness H&P Date: 05/20/24 Chief Complaint: bee sting 49-year-old female presents emergency department complaining of bug bite or sting to right hand with swelling. stated that the swelling started in the right hand and later spread to the right arm. Also complaining of generalized itching on her other arm as well. Has history of nasal congestion due to ALLERGIES, asthma, prediabetes and hypertension. Denies any difficulty in breathing or throat swelling. Denies any nausea or vomiting. No fevers or chills. In the emergency department she was given IV Benadryl, IV Solu-Medrol as well as Pepcid. She was admitted for further monitoring. Review of Systems complete review of system performed, pertinent positives per HPI, otherwise negative Past Medical History Past Medical History: Asthma, Diabetes Mellitus, Hypertension Additional Past Medical History / Comment(s): migraines History of Any Multi-Drug Resistant Organisms: None Reported Past Surgical History: Appendectomy, Bariatric Surgery, Section, Orthopedic Surgery, Tonsillectomy Additional Past Surgical History / Comment(s): splenectomy, ACL L leg Past Anesthesia/Blood Transfusion Reactions: No Reported Reaction Past Psychological History: Bipolar, Depression Smoking Status: Current every day smoker Past Alcohol Use History: Occasional Medications and Allergies Home Medications Medication Instructions Recorded Confirmed Type Montelukast Sodium [Singulair] 10 mg PO DAILY 11/16/21 05/20/24 History FLUoxetine HCL [PROzac] 20 mg PO DAILY 05/20/24 05/20/24 History FLUoxetine HCL [PROzac] 40 mg PO DAILY 05/20/24 05/20/24 History busPIRone HCl [Buspar] 5 mg PO TID 05/20/24 05/20/24 History lisinopriL [Zestril] 10 mg PO DAILY 05/20/24 05/20/24 History Allergies Allergy/AdvReac Type Severity Reaction Status Date / Time tramadol HCl [From [facility]] Allergy Unknown Verified 05/20/24 14:40 Physical Exam Vitals: Vital Signs Temp Pulse Resp BP Pulse Ox 05/20/24 14:26 70 18 125/81 98 05/20/24 11:43 98.5 F 68 16 152/94 100 Intake and Output 05/20/24 05/20/24 05/20/24 06:59 14:59 22:59 Other: Weight 75.296 kg Constitutional: No acute distress, conversant, pleasant Eyes: Anicteric sclerae, moist conjunctiva, no lid-lag Pupils equal round reactive to light ENMT: NC/AT Oropharynx clear, no erythema, exudates Neck: Supple, FROM, no masses, or JVD No carotid bruits No thyromegaly Lungs: Clear to auscultation Clear to percussion Normal respiratory effort, no accessory muscle use Cardiovascular: Heart regular in rate and rhythm, No murmurs, gallops, or rubs No peripheral edema Abdominal: Soft Nontender, no guarding, rebound or rigidity Abdomen moving with respiration Normoactive bowel sounds No hepatomegaly, No splenomegaly No palpable mass No abdominal wall hernia noted Skin: Normal temperature, tone, texture, turgor No induration No subcutaneous nodules No rash, lesions No ulcers Extremities: right hand and arm swollen, no significant erythema. No digital cyanosis No clubbing Pedal pulses intact and symmetrical Radial pulses intact and symmetrical No calf tenderness Psychiatric: Alert and oriented to person, place and time Appropriate affect fair judgement Neuro Muscles Strength 5/5 in all 4 extremities Sensation to light touch grossly present throughout Cranial nerves II-XII grossly intact No focal sensory deficits Lymphatics: no palpable cervical or supraclavicular , or inguinal lymph nodes Results CBC & Chem 7: 05/20/24 14:01 05/20/24 14:01 Labs: Abnormal Lab Results - Last 24 Hours (Table) 05/20/24 Range/Units 14:01 Carbon Dioxide 20 L (22-30) mmol/L Glucose 105 H (74-99) mg/dL Assessment and Plan Plan: Insect bite with subsequent ALLERGIC reaction Monitor for respiratory compromise Resume IV steroids, IV Benadryl as well as IV Pepcid. History of hypertension History of depression History of asthma History of ALLERGIES All stable Resume meds Admit to observation, expected discharge in a.m.
[2024-05-20] MEDS: KETOROLAC 15 MG/ML 1 ML VIAL IVP PRN (17:38)
[2024-05-20] MEDS: DEXAMETHASONE SOD PHOSPHATE 10 MG/ML 1 ML VIAL IVP SCH (17:39)
[2024-05-20] MEDS: SODIUM CHLORIDE 0.9% 1,000 ML IV SCH (21:14)
[2024-05-20] MEDS: diphenhydrAMINE 50 MG/ML 1 ML VIAL IVP SCH (21:28)
[2024-05-20] MEDS: busPIRone HCl 5 MG TAB PO SCH (21:28)
[2024-05-21] MEDS: MONTELUKAST 10 MG TAB PO SCH (07:55)
[2024-05-21] MEDS: FLUoxetine HCL 20 MG CAP PO SCH (07:55)
[2024-05-21] MEDS: lisinopriL 10 MG TAB PO SCH (07:55)
[2024-05-21 09:07] LABS: Basophils # (A) 0.02 X 10*3/uL (0.00-0.10); Basophils % (A) 0.2 %; Eosinophils # (A) 0 X 10*3/uL (0.04-0.35); Eosinophils % (A) 0 %; HCT 40.4 % (37.2-46.3); HGB 13.1 g/dL (12.0-15.0); Lymphocytes # (A) 0.59 X 10*3/uL (0.90-5.00); Lymphocytes % (A) 7.3 %; MCH 29.2 pg (27.0-32.0); MCHC 32.4 g/dL (32.0-37.0); MCV 90.2 FL (80.0-97.0); Mean Platelet Volume 10.8 FL (9.5-12.2); Monocytes # (A) 0.28 X 10*3/uL (0.20-1.00); Monocytes % (A) 3.5 %; NRBC Per 100 WBC 0 X 10*3/uL (0.00-0.01); Neutrophils # (A) 7.19 X 10*3/uL (1.80-7.70); Neutrophils % (A) 88.6 %; Platelet Count 293 X 10*3/uL (140-440); RBC 4.48 X 10*6/uL (4.10-5.20); RDW 12.7 % (11.5-14.5); WBC 8.11 X 10*3/uL (4.50-10.00)
[2024-05-21 09:14] LABS: ALT 21 U/L (8-44); AST 17 U/L (13-35); Albumin/Globulin Ratio 1.82 Ratio (1.60-3.17); Alkaline Phosphatase 48 U/L (41-126); BUN/Creat Ratio 17.86 Ratio (12.00-20.00); Blood Urea Nitrogen 12.5 mg/dL (9.0-27.0); Calcium 9.1 mg/dL (8.7-10.3); Carbon Dioxide 19.3 mmol/L (21.6-31.8); Chloride 107 mmol/L (96-109); Globulin 2.2 g/dL (1.6-3.3); Glucose 136 mg/dL (70-110); Potassium 4.6 mmol/L (3.5-5.5); Sodium 137 mmol/L (135-145); Total Bilirubin 0.3 mg/dL (0.3-1.2); Total Protein 6.2 g/dL (6.2-8.2)
[2024-05-21] MEDS: ACETAMINOPHEN TAB 325 MG TAB PO PRN (10:50)
--- NOTE | 2024-05-21 11:35 | P.DS ---
Providers Date of admission: 05/20/24 16:02 Expected date of discharge: 05/21/24 Attending physician: Nomi Larsen MD Consults: 05/20/24 16:00 Consult Physician Routine Consulting Provider: Rocío Reddy Consult Reason/Comments: cellulitis, bug bite to hand Do you want consulting provider notified?: Yes Primary care physician: Maxx Thacker [place] [facility] Course: 49-year-old female presents emergency department complaining of bug bite or sting to right hand with swelling. stated that the swelling started in the right hand and later spread to the right arm. Also complaining of generalized itching on her other arm as well. Has history of nasal congestion due to ALLERGIES, asthma, prediabetes and hypertension. Denies any difficulty in breathing or throat swelling. Denies any nausea or vomiting. No fevers or chills. In the emergency department she was given IV Benadryl, IV Solu-Medrol as well as Pepcid. She was admitted for further monitoring. Upon admission she was continued on decadron, pepcid and benadryl. No sob or respiratory compromise noted. Next day she was feeling better, arm swelling went down. She was discharged home in a stable condition. She was seen and examined on the day of discharge 05/21. Patient Condition at Discharge: Stable Plan - Discharge Summary Discharge Rx Participant: Yes New Discharge Prescriptions: Continue Montelukast Sodium [Singulair] 10 mg PO DAILY busPIRone HCl [Buspar] 5 mg PO TID lisinopriL [Zestril] 10 mg PO DAILY FLUoxetine HCL [PROzac] 40 mg PO DAILY FLUoxetine HCL [PROzac] 20 mg PO DAILY Discharge Medication List Montelukast Sodium [Singulair] 10 mg PO DAILY 11/16/21 [History] FLUoxetine HCL [PROzac] 20 mg PO DAILY 05/20/24 [History] FLUoxetine HCL [PROzac] 40 mg PO DAILY 05/20/24 [History] busPIRone HCl [Buspar] 5 mg PO TID 05/20/24 [History] lisinopriL [Zestril] 10 mg PO DAILY 05/20/24 [History] Follow up Appointment(s)/Referral(s): Maxx Thacker MD [Primary Care Provider] - 1-2 days
[2024-05-21] MEDS: diphenhydrAMINE 50 MG/ML 1 ML VIAL ONE ×2 (13:30)
[2024-05-21] MEDS: ACETAMINOPHEN TAB 325 MG TAB ONE (13:30)
[2024-05-21] MEDS: KETOROLAC 15 MG/ML 1 ML VIAL ONE (13:30)
[2024-05-21] MEDS: DOXYCYCLINE 100 MG CAP PO SCH (13:42)
[2024-05-21 13:59] VITALS: BP 113/67; PULSE 88; RESP 15; TEMP 98.6
--- NOTE | 2024-05-27 13:35 | P.CONS ---
History of Present Illness - Reason for Consult Consult date: 05/21/24 Cellulitis, bug bite to the hand Requesting physician: Aravind Grimes - Chief Complaint Right hand pain swelling and redness x 1 day - History of Present Illness Patient is a 49-year-old female with a past medical history difficult for diabetes mellitus hypertension asthma presenting to the ER yesterday afternoon concerning for bee sting to the right hand with subsequent swelling and redness that seem to have extended to the right upper arm area initially started at the right pointer finger near the knuckle and subsequently the redness and the swelling has spread to the dorsum of the hand and the forearm patient was complaining of pain to be mostly sharp throbbing moderate intensity without radiation with associated swelling redness did not have any open wound or any drainage patient on presentation to the hospital was afebrile and no fever have been recorded subsequently patient was not tachycardic hypotensive or hypoxic did have white count of 5.5 creatinine 0.65 blood culture obtained which are currently pending patient received a dose of vancomycin also received steroids admitted to hospital infectious he was consulted for further management of antibiotic therapy Review of Systems Positive point and negatives has been mentioned in the HPI, complete review of systems was performed and all other systems are negative Past Medical History Past Medical History: Asthma, Diabetes Mellitus, Hypertension Additional Past Medical History / Comment(s): migraines History of Any Multi-Drug Resistant Organisms: None Reported Past Surgical History: Appendectomy, Bariatric Surgery, Section, Or thopedic Surgery, Tonsillectomy Additional Past Surgical History / Comment(s): splenectomy, ACL L leg Past Anesthesia/Blood Transfusion Reactions: No Reported Reaction Past Psychological History: Bipolar, Depression Smoking Status: Current every day smoker Past Alcohol Use History: Occasional Medications and Allergies Home Medications Medication Instructions Recorded Confirmed Type Montelukast Sodium [Singulair] 10 mg PO DAILY 11/16/21 05/20/24 History FLUoxetine HCL [PROzac] 20 mg PO DAILY 05/20/24 05/20/24 History FLUoxetine HCL [PROzac] 40 mg PO DAILY 05/20/24 05/20/24 History busPIRone HCl [Buspar] 5 mg PO TID 05/20/24 05/20/24 History lisinopriL [Zestril] 10 mg PO DAILY 05/20/24 05/20/24 History Doxycycline Hyclate 100 mg PO BID 7 Days #14 tab 05/21/24 Rx Allergies Allergy/AdvReac Type Severity Reaction Status Date / Time tramadol HCl [From [facility]] Allergy Unknown Verified 05/20/24 14:40 Physical Exam Vitals: Vital Signs Temp Pulse Pulse Resp BP BP Pulse Ox 05/21/24 07:26 98.0 F 62 16 123/77 99 05/21/24 01:31 98.2 F 78 16 128/82 98 05/20/24 19:29 98.1 F 82 16 123/71 98 05/20/24 16:53 98.1 F 77 20 123/83 99 05/20/24 16:26 98.1 F 73 18 121/79 99 05/20/24 14:26 70 18 125/81 98 05/20/24 11:43 98.5 F 68 16 152/94 100 Intake and Output 05/20/24 05/21/24 05/21/24 22:59 06:59 14:59 Intake Total 1080 Balance 1080 Intake: Oral 1080 Other: # Voids 3 Weight 75.296 kg GENERAL DESCRIPTION: Middle-aged female lying in bed, no distress. No tachypnea or accessory muscle of respiration use. HEENT: Shows Pallor , no scleral icterus. Oral mucous membrane is dry. No pharyngeal erythema or thrush NECK: Trachea central, no thyromegaly. LUNGS: Unlabored breathing. Clear to auscultation anteriorly. No wheeze or crackle. HEART: S1, S2, regular rate and rhythm. No loud murmur ABDOMEN: Soft, no tenderness , guarding or rigidity, no organomegaly EXTREMITIES: Right hand dorsum of the forearm minimal swelling no significant redness open wound or any drainage SKIN: No rash, no masses palpable. NEUROLOGICAL: The patient is awake, alert, oriented x3, mood and affect normal. Results CBC & Chem 7: 05/21/24 02:41 05/21/24 02:41 Labs: Abnormal Lab Results - Last 24 Hours (Table) 05/20/24 05/21/24 05/21/24 Range/Units 14:01 02:41 02:41 Lymphocytes # 0.59 L (0.90-5.00) X 10*3/uL Eosinophils # 0 L (0.04-0.35) X 10*3/uL Carbon Dioxide 20 L 19.3 L (22-30) mmol/L Glucose 105 H 136 H (74-99) mg/dL Assessment and Plan (1) Bug bite Status: Acute Code(s): W57.XXXA - BIT/STUNG BY NONVENOM INSECT & OTH NONVENOM ARTHROPODS, INIT SNOMED Code(s): 167474217 (2) Cellulitis Status: Acute Code(s): L03.90 - CELLULITIS, UNSPECIFIED SNOMED Code(s): 465497320 Plan: 1patient presented hospital with right hand dorsum as well as forearm swelling redness and this patient apparently did have a bug bite to the pointer finger concerning for possible cellulitis likely from gram-positive skin windy and this patient has shown overall improvement 2we will recommend a short course of oral doxycycline on discharge prescription was sent to the pharmacy Advised if any worsening swelling redness after discharge to let me know right away Time with Patient: Greater than 30
== END 2024-05-21 14:52 | disposition home or self-care (01) ==
LOC: EC 11:34 → 5NMEDONC 16:02
PROVIDERS: ADMIT Student in an Organized Health Care Education/Training Program; ATTEND Student in an Organized Health Care Education/Training Program
DX: T63.441A Toxic effect of venom of bees, accidental (unintentional), initial encounter (principal); L03.113 Cellulitis of right upper limb; I10 Essential (primary) hypertension; J45.909 Unspecified asthma, uncomplicated; E11.9 Type 2 diabetes mellitus without complications; F31.9 Bipolar disorder, unspecified; F17.200 Nicotine dependence, unspecified, uncomplicated; Z79.899 Other long term (current) drug therapy; Z88.5 Allergy status to narcotic agent
CPT/HCPCS: 36415; 80048; 80053; 85025; 87040; 96361; 96365; 96366; 96375; 96376; 99285